=== PATIENT | male | born 1960 | race American Indian/Alaskan Native ===

== ENCOUNTER 2016-11-05 15:28 | Inpatient (IN) | payer MEDICAID ==
[~2016-11-05] VITALS: Ht 162.6 cm; Wt 114.9 kg
--- NOTE | ~2016-11-05 | ECHO ---
Transthoracic Echocardiography Report (TTE) Demographics Patient Name SYLVIA MONTILLA Date of Study 11/17/2016 Patient Number [id number] Visit Number [id number] Date of 1960 Room Number G6216 Accession Number [id number] Gender Male Age 56 year(s) Referring Jesse Tovar MD Concrete Batching Plant Operator Kareen Ponce RVT Physician Sharri Allan Physician Interpreting Surendra Turner Splitter Machine Operator Physician Thais OBRIEN Supervising Ordering Physician Sharri Hook MD/JUAN CARLOS OBRIEN Nurse Stress Crew Foreman Conclusions Summary Technically difficult exam. Limited echo to evaluate right heart function. The estimated left ventricular ejection fraction is 55%. Moderate to severely dilated right ventricle. The right atrium is severely dilated. IVC measures 2.72 cm without inspiratory collapse. Moderate-severe tricuspid regurgitation by color Doppler. There is severe pulmonary hypertension. The pulmonary pressure (RVSP) is 67 mmHg. Large Pleural effusion present. Procedure Type of Study TTE procedure:Echo Limited w/o Contrast. Procedure Date Date: 11/17/2016 Start: 11:47 AM Study Location: Inpatient Portable Technical Quality: Fair due to body habitus. Indications:Congestive heart failure. Additional Indications:Assess right heart Patient Status: STAT HR: 123 bpm BP: 97/64 mmHg M-Mode/2D Measurements RV Base: 3.81 cm RV Mid: 4.68 cm RV Length: 9.51 cm TAPSE: 1.59 cm TDI-S': 12.5 cm/s Doppler Measurements TR Velocity:3.61 m/s TR Gradient:52.13 mmHg Estimated RAP:15 mmHg Estimated PASP: 67.13 mmHg Estimated RVSP: 67 mmHg Findings Right Ventricle Moderate to severely dilated right ventricle. Right Atrium The right atrium is severely dilated. IVC measures 2.72 cm without inspiratory collapse. Tricuspid Valve Moderate-severe tricuspid regurgitation by color Doppler. There is severe pulmonary hypertension. The pulmonary pressure (RVSP) is 67 mmHg. Pleural Effusion Large Pleural effusion present. Signature dtt: THAIS ESPINOZA dtd: 11/17/16 1147 Physician Self Edit
--- NOTE | ~2016-11-05 | ECHO ---
Transthoracic Echocardiography Report (TTE) Demographics Patient Name SYLVIA MONTILLA Date of Study 11/05/2016 Patient Number [id number] Visit Number [id number] Date of 1960 Room Number G6216 Gender Male Number Age 56 year(s) Referring Jesse Tovar Fish Smoker Ketty RVT, RDCS Physician MD Clarke Physician Interpreting Scott Tovar Machinist First Class Physician MD Supervising Ordering MD/MLP Physician Nurse Stress Foreman/Project Manager Conclusions Summary Technically difficult exam due to patients body habitus. The estimated left ventricular ejection fraction is 50%. Mild to moderate concentric left ventricular hypertrophy. The interventricular septum is flattened which is consistent with right ventricular pressure / and or volume overload. Severely dilated right ventricle. Moderate to severely reduced right ventricular function. Moderate tricuspid regurgitation by color Doppler. There is probably severe pulmonary hypertension as the PA diastolic pressure is 36mmHg. Large pleural effusion present. Possibly bicuspid aortic valve. Procedure Type of Study TTE procedure:2D Echocardiogram, M-Mode, Doppler , Color Doppler. Procedure Date Date: 11/05/2016 Start: 04:54 PM Study Location: Inpatient Portable Technical Quality: Fair Indications:Respiratory failure. Appropriate Use Criteria: 9 Patient Status: STAT HR: 123 bpm BP: 96/66 mmHg M-Mode/2D Measurements LV Diastolic Dimension: 3.57 cm LV Systolic Dimension: 1.52 cm LV Septum Diastolic: 1.17 cm LV PW Diastolic: 0.94 cm AO Root Dimension: 3.1 cm AV Cusp Separation: 1.5 cm RV Diastolic Dimension: 4.05 cm LA Dimension: 3.7 cm LVOT: 1.9 cm Doppler Measurements MV Peak E-Wave: 0.86 m/s TR Velocity:2.49 m/s TR Gradient:24.8 mmHg Estimated RAP:15 mmHg PV Peak Velocity: 1.05 m/s Estimated RVSP: 40 mmHg PV Peak Gradient: 4.41 mmHg Estimated PASP: 39.8 mmHg Findings Left Ventricle Mild to moderate concentric left ventricular hypertrophy. The interventricular septum is flattened which is consistent with right ventricular pressure / and or volume overload. Paradoxical septal motion. Right Ventricle Severely dilated right ventricle. Moderate to severely reduced right ventricular function. Left Atrium The left atrium is moderately dilated. Right Atrium Right atrium not well visualized. Mitral Valve Normal mitral valve structure and function. Aortic Valve Possibly bicuspid aortic valve. Tricuspid Valve Moderate tricuspid regurgitation by color Doppler. There is probably severe pulmonary hypertension as the PA diastolic pressure is 36mmHg. Pulmonic Valve Mild pulmonic valve regurgitation by color Doppler. Pericardial Effusion No evidence of pericardial effusion. Pleural Effusion Large pleural effusion present. Signature dtt: Lexie Chavez dtd: 11/05/16 1654 Physician Self Edit
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
--- NOTE | ~2016-11-05 | CON ---
PATIENT'S NAME: NITO CORCORAN [facility] AGE: 56 Y [address] ROOM: [place] [address] LOCATION: [facility] ADMIT DATE: 11/05/2016 Consultation DISCHARGE DATE: FAMILY PHYSICIAN: Maksim Molina MD ATTENDING PHYSICIAN: Sanjana BENZ DATE OF CONSULTATION: 11/14/2016 REFERRING PHYSICIAN: Charles Buckley MD REASON FOR CONSULTATION: Hypotension and tachycardia. HISTORY OF PRESENTING ILLNESS: A 56-year-old gentleman with history of end-stage liver disease secondary to alcohol. He also has portopulmonary hypertension with severe pulmonary artery systolic pressure in the 90s. He also has history of COPD and chronic hypoxic respiratory failure. He was on 4 L of oxygen at home. He also has history of chronic kidney disease and GI bleeding. He received 2 units of packed RBCs while he was in acute hypoxic respiratory failure requiring intubation at [place] and finally the patient was transferred here for further care. The patient has had significant comorbidities and issues since admission and he is doing very poorly and is almost terminal at this stage. The patient also had four large esophageal varices that required banding. He has been hypotensive and tachycardic. He had a Garland Yoon catheter placed, and his PA systolic pressures were in the 80 over 40s. He also had echo that showed significant RV volume and pressure overload. He was on the Bumex drip and they diuresed almost 10 L of urine output and initially when they started that few days ago, and most recently now he is essentially anuric today and Nephrology is on board and he is getting albumin boluses for that. He has had recurrent episodes of SVT. There are episodes of atrial flutter with rapid ventricular response. He is on milrinone and Levophed drip to help maintain systolic blood pressure. They are weaning off the Milrinone currently. He is intubated on 70% oxygen assist control. REVIEW OF SYSTEMS: Not obtained as the patient is intubated on mechanical ventilation. PAST MEDICAL HISTORY: 1. End-stage liver disease secondary to alcohol abuse. 2. Alcoholic cirrhosis. 3. Diabetes mellitus. PATIENT'S NAME: NITO CORCORAN [facility] AGE: 56 Y [address] ROOM: [place] [address] LOCATION: [facility] ADMIT DATE: 11/05/2016 Consultation DISCHARGE DATE: FAMILY PHYSICIAN: Maksim Molina MD ATTENDING PHYSICIAN: Sanjana BENZ 4. History of diastolic CHF. 5. Severe pulmonary hypertension. 6. COPD with chronic hypoxic respiratory failure on 4 L of oxygen at home. 7. Chronic kidney disease. 8. History of alcohol abuse. FAMILY HISTORY: Unable to obtain. SOCIAL HISTORY: Unable to obtain. MEDICATIONS: Please see MAR. ALLERGIES: PLEASE SEE MAR. PHYSICAL EXAMINATION: VITAL SIGNS: Blood pressure is 104/60, pulse is in the 120s, respiratory rate in the 20s,O2 saturation 90% on FiO2 of 70% assist control. GENERAL: Middle-aged man intubated. HEAD: The ET tube in place. EYES: No xanthelasmas. NECK: No thyromegaly. Supple. HEART: S1, S2. Tachycardic. 3/6 systolic murmur best heard in the left lower sternal border. CHEST: Good air exchange anteriorly. No wheezing. SKIN: Warm and dry. Mild lower extremity edema. LABORATORY DATA: pH 7.45, pO2 is 51, pCO2 42, on 40% FiO2 this a.m. for which O2 was increased. Sodium 134, potassium 3.5, CO2 31, anion gap 15.5, BUN 60, creatinine 2.6, albumin 3.5, direct bilirubin 1.1, alkaline phosphatase 46, AST 47, ALT 13, GFR 26, ProBNP 46,243. WBC 19.4, H and H 7.6 and 25.7, platelets are 188. Chest x-ray, cardiomegaly with vascular congestion. Patchy right and left perihilar opacities. Echocardiogram LVEF 50%. RV pressure and volume overload. Severely dilated RV. Right atrium moderate to severely dilated. PA systolic pressure 66 mmHg. Large pleural effusion. Moderate to severely reduced RV systolic function. Tele strips reviewed atrial flutter with 3 to 1 AV block. IMPRESSION AND PLAN: PATIENT'S NAME: SYLVIA MONTILLA [facility] AGE: 56 Y [address] ROOM: [place] [address] LOCATION: [facility] ADMIT DATE: 11/05/2016 Consultation DISCHARGE DATE: FAMILY PHYSICIAN: Maksim Molina MD ATTENDING PHYSICIAN: Sanjana BENZ 1. Supraventricular tachycardia, atrial flutter with 3 to 1 AV block. 2. Hypotension. 3. End-stage liver disease secondary to alcohol abuse. 4. Alcoholic cirrhosis. 5. Portopulmonary hypertension. 6. Chronic obstructive pulmonary disease on oxygen. 7. Severe pulmonary hypertension. 8. Right ventricular failure with reduced right ventricular systolic function, cor pulmonale. 9. Oliguric. 10. Mabuw-ee-ujepoem kidney disease. 11. GI bleed from esophageal varices, status post banding. 12. Encephalopathy. 13. Acacc-az-tjpchbo hypoxic respiratory failure. 14. Diastolic congestive heart failure. PLAN: At this time, unfortunately there is not much Cardiology can add in terms of doing any procedures that will help his overall management. His tachycardia is a reflex mechanism secondary to his numerous acute comorbidities. Aggressive management of his end-stage liver disease as well as respiratory status as you already are. Minimize high pressor use if able to, that will exacerbate the tachycardia as well as tachyarrhythmias. Unfortunately, he is not a candidate for any ablation procedures at this time. I will give him one dose of digoxin; however no amount of AV horacio blocking agents will really help his current situation as this likely is a reflex mechanism for him to cope with his other comorbidities. Given his hypotension, he really is not an ideal candidate for any normal agents for his pulmonary hypertension as well. I do not think an RV Impella or any support in that regard will also help change his overall outcome. His overall prognosis is very poor and the primary team is trying to reach family members regarding further continued care at this point. Thank you very much for allowing us to participate in the care of Mr. Nito Corcoran. JESS ESPINOZA MD AT/modl PATIENT'S NAME: SYLVIA MONTILLA [facility] AGE: 56 Y [address] ROOM: [id number] [place] [id number] LOCATION: GICU ADMIT DATE: 11/05/2016 Consultation DISCHARGE DATE: FAMILY PHYSICIAN: Maksim Molina MD ATTENDING PHYSICIAN: Sanjana BENZ /[id number] d: 11/15/16 0055 t: 11/19/16 1802, CONSULTATION REPORT
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
--- NOTE | ~2016-11-05 | ENPV ---
Vascular Lower Extremities DVT Study Procedure Demographics Patient Name SYLVIA MONTILLA Date of Study 11/15/2016 Patient Number [id number] Gender Male Date of 1960 Age 56 Visit Number [id number] Height 72 Accession Number [id number] Weight 254 Referring Jesse Cline MD Physician Physician Physician Ordering Physician Joseph Roque MD Client Relation Specialist Coutierier Khanh Oconnor [facility], [facility] Conclusions Summary TECHNIQUE: The veins of the lower extremities on the right and the left were evaluated from the groin to the ankle using keys scale, compression, and augmentation. Venous hemodynamics were evaluated with color flow and spectral Doppler. FINDINGS: The deep veins of the legs bilaterally show normal color flow and compressibility without thrombosis. The calf veins are difficult to visualize. IMPRESSION: NO EVIDENCE OF DVT - DIFFICULT TO VISUALIZE CALF VEINS. Procedure Type of Study: Veins:Lower Extremities DVT Study, Venous Duplex Lower Extremity Bilateral. Indications for Study:Swelling of Limb. Appropriate Use Criteria:9 Patient Status:Routine. Study Location:Inpatient Portable. Technical Quality:Adequate visualization. Velocities are measured in cm/s ; Diameters are measured in cm Right Lower Extremities DVT Study Measurements Right 2D and Doppler Measurements + + + + +------+------+ + !Location !Visualized!Compressibility!Thrombosis!Signal!Reflux!Reflux ! ! ! ! ! ! ! !(sec) ! + + + + +------+------+ + !GSV Thigh !Yes !Yes !None !Phasic! ! ! + + + + +------+------+ + !Common !Yes !Yes !None !Phasic! ! ! !Femoral ! ! ! ! ! ! ! + + + + +------+------+ + !Prox !Yes !Yes !None !Phasic! ! ! !Femoral ! ! ! ! ! ! ! + + + + +------+------+ + !Mid Femoral!Yes !Yes !None ! ! ! ! + + + + +------+------+ + !Dist !Yes !Yes !None !Phasic! ! ! !Femoral ! ! ! ! ! ! ! + + + + +------+------+ + !Popliteal !Yes !Yes !None !Phasic! ! ! + + + + +------+------+ + !Gastroc !Yes !Yes !None ! ! ! ! + + + + +------+------+ + !PTV !Yes !Yes !None ! ! ! ! + + + + +------+------+ + !Peroneal !Yes !Yes !None ! ! ! ! + + + + +------+------+ + Left Lower Extremities DVT Study Measurements Left 2D and Doppler Measurements + + + + +------+------+ + !Location !Visualized!Compressibility!Thrombosis!Signal!Reflux!Reflux ! ! ! ! ! ! ! !(sec) ! + + + + +------+------+ + !GSV Thigh !Yes !Yes !None !Phasic! ! ! + + + + +------+------+ + !Common !Yes !Yes !None !Phasic! ! ! !Femoral ! ! ! ! ! ! ! + + + + +------+------+ + !Prox !Yes !Yes !None !Phasic! ! ! !Femoral ! ! ! ! ! ! ! + + + + +------+------+ + !Mid Femoral!Yes !Yes !None ! ! ! ! + + + + +------+------+ + !Dist !Yes !Yes !None !Phasic! ! ! !Femoral ! ! ! ! ! ! ! + + + + +------+------+ + !Popliteal !Yes !Yes !None !Phasic! ! ! + + + + +------+------+ + !Gastroc !Yes !Yes !None ! ! ! ! + + + + +------+------+ + !PTV !Yes !Yes !None ! ! ! ! + + + + +------+------+ + !Peroneal !Yes !Yes !None ! ! ! ! + + + + +------+------+ + Signature dtt: Fabricio Rodriguez dtd: 11/15/16 0736 Physician Self Gabby
--- NOTE | ~2016-11-05 | OR ---
PATIENT'S NAME: SYLVIA MONTILLA [facility] AGE: 56 Y [address] ROOM: [address] [address] LOCATION: GICU ADMIT DATE: 11/05/2016 OR/Procedure Report DISCHARGE DATE: FAMILY PHYSICIAN: Maksim Molina MD ATTENDING PHYSICIAN: Sanjana BENZ SURGEON: Anderson Cash DO AUXILIARY EQUIPMENT OPERATOR: DATE OF PROCEDURE: 11/21/2016 REFERRING PHYSICIAN: Mya Vargas MD PREOPERATIVE DIAGNOSIS: Placement of temporary hemodialysis catheter. BRIEF HISTORY: Mr. Nito Avilez is a 56-year-old gentleman who is in need of hemodialysis. DESCRIPTION OF PROCEDURE: We visualized the right internal jugular vein without difficulty and accessed this also without difficulty; however, a guidewire would not feed past 11 cm. The patient has had multiple previous catheters in this place and continues to have a PICC line in this site, and it may be interfering with the guidewire. Therefore, we proceeded through the left infraclavicular space and accessed the left subclavian vein without difficulty. The guidewire fed without resistance. Soft tissue dilator x2 placed over the guidewire, and then the triple-lumen catheter placed over the guidewire. The guidewire was withdrawn. Each lumen aspirated easily for dark venous blood and was flushed with sterile saline. Two dialysis lumens were then locked with heparin, was secured in position with 2-0 nylon. A sterile dressing was applied, and the patient tolerated the procedure well. A chest x- ray is pending. ANDERSON CASH DO MCB/modl /[id number] d: 11/21/161819 t: 11/23/16 0803, OPERATIVE SUMMARY
--- NOTE | ~2016-11-05 | OR ---
PATIENT'S NAME: SYLVIA MONTILLA [facility] AGE: 56 Y [address] ROOM: [place] [address] LOCATION: CU ADMIT DATE: 11/05/2016 OR/Procedure Report DISCHARGE DATE: FAMILY PHYSICIAN: Maksim Molina MD ATTENDING PHYSICIAN: Sanjana BENZ SURGEON: Taco Iraheta MD DATE OF PROCEDURE: 11/22/2016 PROCEDURE PERFORMED: Rapid sequence endotracheal intubation. INDICATIONS: Worsening acute hypercapnic and hypoxic respiratory failure with altered mental status and massive fluid overload in a patient with cardiogenic shock. DESCRIPTION OF PROCEDURE: Permit was implied secondary to emergency situation. A GlideScope with a #4 blade was inserted into the oropharynx at which time the vocal cords were adequately visualized. Prior to this, 100 mcg of fentanyl, 5 mg of Versed, and 20 mg of etomidate were administered for sedation and analgesia. A #8 endotracheal tube was inserted and visualized going through the vocal cords on the second attempt. During the first attempt, it was hard to advance the endotracheal tube past the subglottic space. With the second attempt, I kept the stylet in and advanced it past the subglottic space. The stylet was removed. The end-tidal CO2 meter showed CO2 levels in the mid 30s. Breath sounds were heard in both lung matthew equally. The endotracheal tube was placed at 23 cm measured at the teeth. COMPLICATIONS: None. ESTIMATED BLOOD LOSS: None. TACO IRAHETA MD RFN/modl /[id number] d: 11/22/16 1422 t: 11/23/16 1024, OPERATIVE SUMMARY
--- NOTE | ~2016-11-05 | CON ---
PATIENT'S NAME: TERESA CORCORAN SYLVIA [facility] AGE: 56 Y [address] ROOM: [facility] [place] [address] LOCATION: GICU ADMIT DATE: 11/05/2016 Consultation DISCHARGE DATE: FAMILY PHYSICIAN: Maksim Molina MD ATTENDING PHYSICIAN: Sanjana BENZ DATE OF CONSULTATION: 11/05/2016 REFERRING PHYSICIAN: Charles Buckley MD REASON FOR CONSULTATION: GI bleed. HISTORY OF PRESENT ILLNESS: This is a 56-year-old gentleman with past medical history of alcoholic liver cirrhosis, diabetes mellitus type 2, diastolic heart failure, pulmonary hypertension, COPD, chronic hypoxic respiratory failure on 4 L home oxygen, chronic kidney disease, and alcohol alcoholism. The patient presented to the [facility] with suspected GI bleed and acute hypoxic respiratory failure. On admission, at that time, his hemoglobin was 7.3. Two units of blood were transfused with a repeat hemoglobin of 7.6. The following day, the patient had complications with worsening of altered mental status and was placed on BiPAP. He ultimately ended up intubated and had significant hypotension. The patient was then transferred to [facility]. The patient was seen and examined. He is intubated and unable to give us any details from review of the medical record as well as the report from the outside facility. The patient was found to have melena stool with a drop of hemoglobin. One report stated that the nurse did notice bright red blood per rectum. The patient currently intubated and sedated. He is currently on IV fluids for blood pressure support as well as vasopressors for his hypotension as the OG was placed coffee-grounds emesis was noted with initial output of 250 mL. We do make contact with the patient's sister , who is his power of employee benefits attorney as she does report a history of alcohol abuse with paracentesis noted. She does report a history of an upper endoscopy and colonoscopy, but does not recall the details as well as timing of these procedures. PAST MEDICAL HISTORY: 1. Diabetes mellitus type 2. 2. Diastolic heart failure. 3. Pulmonary hypertension. 4. COPD, on 3-4 L at home. 5. Coronary artery disease. 6. Chronic kidney disease. 7. Alcoholism. 8. Cor pulmonale. PATIENT'S NAME: TERESA CORCORAN [facility] AGE: 56 Y [address] ROOM: [place] [address] LOCATION: [facility] ADMIT DATE: 11/05/2016 Consultation DISCHARGE DATE: FAMILY PHYSICIAN: Maksim Molina MD ATTENDING PHYSICIAN: Sanjana BENZ PAST SURGICAL HISTORY: Unable to obtain, secondary to the patient's status. The patient's sister does report that he did have an upper endoscopy and colonoscopy, though unsure of timing and outcome. SOCIAL HISTORY: The patient is a known alcoholic and currently resides at a shelter. FAMILY HISTORY: Unable to acquire due to the patient's mentation. ALLERGIES: PER THE MEDICAL REPORT. THE PATIENT IS ALLERGIC TO PENICILLIN, MORPHINE, AND CODEINE. CURRENT MEDICATIONS: Please refer to the medication administration record. REVIEW OF SYSTEMS: A 10-point review of systems was completed. All were negative except for those identified in the history of present illness. PHYSICAL EXAMINATION: GENERAL: The patient is a 56-year-old male, lying in bed, currently intubated and sedated. VITAL SIGNS: Temperature 98.3, pulse of 132, respirations of 18, blood pressure 125/63, oxygen saturations 91%. SKIN: [place], warm, and dry. No jaundice. HEENT: Head is normocephalic and atraumatic. Pupils are equal, round, and reactive to light. Sclerae is mildly icteric. Oral mucosa is pink and moist. No thyromegaly. NECK: Soft and supple. CARDIOVASCULAR: Tachycardic. Normal S1 and S2, RESPIRATORY: Respirations are even and unlabored. LUNGS: Clear to auscultation. Slightly diminished in the bilateral lobes. ABDOMEN: Round, obese, and soft. Bowel sounds are positive x4 quadrants. MUSCULOSKELETAL: No muscle weakness or atrophy. EXTREMITIES: No clubbing or cyanosis or edema. NEUROLOGIC: The patient currently is intubated and sedated. LABORATORY DATA AND IMAGING STUDIES: Hemoglobin of 7.9, hematocrit of 27.4, and platelet of 144. Glucose of 113, BUN of 93, creatinine 2.2. AST of 18, ALT of 15, total bilirubin 1.7. INR is 1.6. PATIENT'S NAME: SYLVIA MONTILLA [facility] AGE: 56 Y [address] ROOM: [address] [place] [id number] LOCATION: GICU ADMIT DATE: 11/05/2016 Consultation DISCHARGE DATE: FAMILY PHYSICIAN: Maksim Molina MD ATTENDING PHYSICIAN: Sanjana BENZ ASSESSMENT AND PLAN: Again, this is a 56-year-old male, who was transferred from [place] with past medical history significant for liver cirrhosis, diastolic heart failure, cor pulmonale, chronic obstructive pulmonary disease, chronic kidney disease, and current alcoholism. The patient was admitted at [facility] for acute GI bleed. 1. Coffee-grounds emesis. The patient's OG tube does appear to have significant coffee-grounds emesis output. This was lavaged per Dr. Adrianna Holland, which did clear mildly. The patient is recommended to continue the Protonix drip. We will also place the patient on octreotide as well as ceftriaxone for prophylaxis of spontaneous bacterial peritonitis. The patient will need an upper endoscopy after stabilization as well as after octreotide has been running to assist in possible variceal bleed. 2. Chronic hypoxic respiratory failure. The patient currently is vented and sedated. MARTINA is pending at this time. This will be managed per our hospitalist and conveyor man. 3. Questionable hepatic encephalopathy. The patient will be continued on the ventilator. We will place the patient on Flagyl for hepatic encephalopathy as well as a continue treating underlying etiology. Further recommendations to be given status post upper endoscopy. Thank you for this consult and allowing us to participate in the care of this patient. We will continue to monitor, evaluate, and treat as appropriate. JEREMÍAS DAVENPORT APRN FOR ADRIANNA HOLLAND MD MMF/modl /[id number] d: 11/06/16 1126 t: 12/28/16 1034, CONSULTATION REPORT
--- NOTE | ~2016-11-05 | CON ---
PATIENT'S NAME: SYLVIA MONTILLA [facility] AGE: 56 Y [address] ROOM: [address] [place], [place] [address] LOCATION: GICU ADMIT DATE: 11/05/2016 Consultation DISCHARGE DATE: FAMILY PHYSICIAN: Maksim Molina MD ATTENDING PHYSICIAN: Sanjana BENZ DATE OF CONSULTATION: 11/07/2016 REFERRING PHYSICIAN: Charles Buckley MD REASON FOR CONSULTATION: BRENT versus BRENT on CKD. HISTORY OF PRESENT ILLNESS: A 56-year-old gentleman with history of alcoholic cirrhosis; diabetes mellitus, type 2; diastolic heart failure; pulmonary hypertension; COPD with chronic hypoxic respiratory failure, was on 4 L of oxygen at home; CKD without any known baseline, admitted at [facility] with GI bleed. Following which, the patient received 2 units of PRBC transfusion resulting in acute hypoxic respiratory failure necessitating intubation. The patient has been transferred to our hospital for further management and care. As per the transfer note suggests, the patient was found to have melanotic stool with drop of hemoglobin and after 2 units of transfusion, hemoglobin was 7.3. However, his stay was complicated with worsening of altered mental status and worsening shortness of breath, possibly secondary to decompensated heart failure. The patient was intubated and after was transferred to [facility]. After coming here, the patient had an EGD done which showed 4 big esophageal varices, necessitating banding. Since then, the patient's hemoglobin is stable, although the patient has received a total of 6 units of PRBC transfusion since coming here. The patient has a severe pulmonary hypertension. On [place] Yoon, the pulmonary artery pressure is 80/40s. Noted to have significant vascular condition and an echo shows significant right ventricular volume and pressure overload. Started on aggressive diuretic regimen from yesterday with Bumex drip resulting in almost 10 L of urine output in the last 24 hours. The patient's creatinine was 2.1 on admission, which improved to 1.7 today. Nephrology consultation has been called for possible BRENT versus BRENT on CKD. REVIEW OF SYSTEMS: Could not be obtained as the patient is intubated and on mechanical ventilation. PAST MEDICAL HISTORY: 1. 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 2. Diabetes mellitus. 3. Diastolic heart failure. 4. Pulmonary hypertension. 5. COPD with chronic hypoxic respiratory failure on 4 L at home. 6. Chronic kidney disease with unknown baseline. 7. Alcoholism. PAST SURGICAL HISTORY: Unable to obtain at this point as the patient is intubated. FAMILY HISTORY: Unable to obtain due to the patient's clinical condition. SOCIAL HISTORY: Unable to obtain due to the patient's condition. MEDICATIONS: Please see MAR.PATIENT'S NAME: SYLVIA MONTILLA [facility] AGE: 56 Y [address] ROOM: [place] [address] LOCATION: [facility] ADMIT DATE: 11/05/2016 Consultation DISCHARGE DATE: FAMILY PHYSICIAN: Maksim Molina MD ATTENDING PHYSICIAN: Sanjana BENZ PHYSICAL EXAMINATION: VITAL SIGNS: Blood pressure 90 to 110 over 60 to 70, pulse 60-70, respiratory rate 20s, saturation 91-94% on FiO2 40%, and PEEP of 5, and the patient had a temperature of 100.1 degrees Fahrenheit. GENERAL: Middle aged male, currently intubated and sedated. HEAD: ET tube in place. Bilateral PERRLA. NECK: Positive JVD. No thyromegaly or lymphadenopathy. CVS: S1, S2 positive. irregular rate and rhythm. Pansystolic murmur at the left sternal border. CHEST: Bilateral air entry is coarse. Occasional rales, mostly at the bases. No wheeze. ABDOMEN: Soft, nondistended. Bowel sounds sluggish. EXTREMITIES: No cyanosis, clubbing, or jaundice. 1+ dependent edema. MUSCULOSKELETAL: No limitation of range of motion. SKIN: No pallor, cyanosis, or icterus. [employer] PRINCIPAL: Intubated and sedated, however moving bilateral extremities. LABORATORY TESTS: ABG; pH 7.57, pCO2 45, pO2 67, and bicarbonate 41. CBC: Hemoglobin 9.1, hematocrit 29.4, WBC 10.6, and platelet 120. Chemistry: Sodium 148; potassium 2.1, dropped from 4.2, yesterday; chloride 102; bicarbonate 36; BUN 77; creatinine 1.7, dropped from 2.2; and glucose 134. Calcium 8.4, total protein 7.1, albumin 2.5, AST 38, ALT 13, alkaline phosphatase 65, total bilirubin 2.2, and direct bilirubin 1.1. Magnesium 1.5. UA pending. Urine electrolytes pending. Procalcitonin today 0.54. ASSESSMENT AND PLAN: 1. Nonoliguric acute kidney injury on chronic kidney disease: Had a history of chronic kidney disease, but baseline is unknown. Creatinine on admission was 2.1, which improved to 1.7 on aggressive diuresis indicating that there is significant component of cardiorenal syndrome type 1. We would recommend to continue aggressive diuresis, however, the patient has been more than 10 L on 1 mg/hour Bumex drip. We can discontinue the Bumex drip and switch to intermittent bolus regimen including Bumex 2 mg IV q.6 hourly along with metolazone 10 mg p.o. daily. Strict intake and output monitoring and daily body weights recording. Avoid hemodynamic stress. Maintain MAP more than 65. Avoid nephrotoxins including NSAIDs and contrast media. Please send a UA and urine electrolytes including sodium, potassium, creatinine, osmolality, and send for urine microscopy. 2. Gastrointestinal bleed, possibly from esophageal varices, status post banding. Currently, the hemoglobin is stable. GI is following. Further recommendation as per GI. 3. Portosystemic encephalopathy. Mental status apparently poor, was on lactulose because there was no NG tube or OG tube in place because of the banding. GI want to place a narrow-gauge Dobbhoff catheter through the nose for lactulose administration on, which may improve his mentation. 4. Acute on chronic hypoxic respiratory failure, possibly due to decompensated heart failure with multiple blood transfusions and fluid resuscitation. The patient currently on aggressive diuretic regimen. Continue diuretics as mentioned above. We will closely monitor the patient's progress.PATIENT'S NAME: SYLVIA MONTILLA [facility] AGE: 56 Y [address] ROOM: [address] [address] LOCATION: [facility] ADMIT DATE: 11/05/2016 Consultation DISCHARGE DATE: FAMILY PHYSICIAN: Maksim Molina MD ATTENDING PHYSICIAN: Sanjana BENZ 5. Diastolic heart failure. Echocardiogram shows significant volume and pressure overload on the right side of the heart with dilated IVC and significant pulmonary hypertension. Continue aggressive diuretic regimen. Dragoon Yoon is in place, we will monitor the pulmonary pressure and may repeat echocardiogram in next few days to look for the change in the right-sided hemodynamics. 6. Chronic obstructive pulmonary disease. Currently, on mechanical ventilation. Albuterol p.r.n. as per the primary team. Dr. Buckley is on the case. Thank you for allowing me to participate in this patient's care. We will closely monitor the patient's progress along with you. ABHISEKH LUIS ARMANDO NELSON MD /bishop /[id number] d: 11/07/16 1920 t: 11/11/16 1231, CONSULTATION REPORT
--- NOTE | ~2016-11-05 | HP ---
PATIENT'S NAME: SYLVIA MONTILLA [facility] AGE: 56 Y [address] ROOM: [id number] [place] [address] LOCATION: GICU ADMIT DATE: 11/05/2016 History & Physical DISCHARGE DATE: FAMILY PHYSICIAN: Maksim Molina MD ATTENDING PHYSICIAN: Sanjana BENZ DATE OF SERVICE: CHIEF COMPLAINT: GI bleed. HPI: The patient is a 56-year-old gentleman with past medical history of alcoholic liver cirrhosis; diabetes mellitus type 2; diastolic heart failure; pulmonary hypertension; COPD; chronic hypoxic respiratory failure, on 4 L home oxygen; chronic kidney disease; and alcoholism, who presents here from [facility] with GI bleed and acute hypoxic respiratory failure. The patient was noted to have altered mental status and increasing oxygen saturation at the fdc and was transferred to [facility] for further evaluation. During his stay, he was noted to have hypoxic respiratory failure and was treated for heart failure with diuretics. During his stay, the patient was found to have melanotic stool with a drop in hemoglobin. The patient was initially transfused with 2 units of blood and repeat hemoglobin shows hemoglobin of 7.6. Initially, his hemoglobin was found to be 7.3 before they give the 2 units. His repeat hemoglobin was 7.6, and the patient was transfused again with 2 units of pack red blood cells. However, his stay was complicated with worsening of altered mental status and worsening of shortness of breath. The patient was placed on BiPAP with 100% FiO2. The patient's symptoms did not improve and altered mental status decreased and also blood pressure was noted to decrease. The patient was intubated and sent to our hospital for further investigation. En route, the patient was given some benjamin boluses for hypotension. However, his blood pressure did not improve and was given some 500 mL of IV fluid with improvement of blood pressure. On arrival to our ICU, the patient was found to have coffee-grounds emesis through his OG tube. The patient is intubated and sedated. We contacted the patient's POA, who is his sister, and according to his sister, the patient has a history of alcoholic abuse and reports that he has liver cirrhosis. She reports that in the past, they have tapped his belly to get fluid out. She also reports of past GI bleed with EGD and colonoscopy, but does not remember the outcome. PAST MEDICAL HISTORY: Diabetes mellitus, type 2; diastolic heart failure; pulmonary hypertension; COPD, on 3-4 L at home; coronary artery disease; chronic kidney disease; PATIENT'S NAME: TERESA CORCORAN [facility] AGE: 56 Y [address] ROOM: [place] [address] LOCATION: [facility] ADMIT DATE: 11/05/2016 History & Physical DISCHARGE DATE: FAMILY PHYSICIAN: Maksim Molina MD ATTENDING PHYSICIAN: Sanjana BENZ alcoholism; and cor pulmonale. PAST SURGICAL HISTORY: Unable to obtain. There is no record. FAMILY HISTORY: Unable to acquire due to the patient's mentation. SOCIAL HISTORY: The patient drinks alcohol and stays in a fdc. MEDICATIONS: Please see MAR. REVIEW OF SYSTEMS: Unable to obtain due to the patient's mentation. PHYSICAL EXAMINATION: VITAL SIGNS: Heart rate of 123, blood pressure of 108/70, saturating 100% on FiO2 of 100. GENERAL APPEARANCE: The patient is morbidly obese. He is sedated and intubated. HEAD: Normocephalic, atraumatic. EYES: Mildly icteric sclerae. MOUTH: NG tube placed with coffee-grounds emesis coming from OG tube. NECK: No JVD noted and supple. LUNGS: The patient is intubated. Mechanical breath sound heard throughout with decreased breath sound on the left lower lung field. HEART: Tachycardic. No murmurs, rubs, or gallops heard. ABDOMEN: Soft and nontender with chronic edematous change with possible fluid shift. Bowel sounds present. : Cardona cath present. SKIN: Venous stasis found in lower extremities. EXTREMITIES: Venous stasis. No edema noted. MUSCULOSKELETAL: No obvious effusion. AOC DIRECTOR COMBAT PLANS OFFICER: The patient is sedated and intubated. DATA: Lab: ABG: pH of 7.36, pCO2 of 67, pO2 of 138, and bicarb of 37.9 while on FiO2 [place] 100. [place] 8866. CBC: Hemoglobin of 7.9, hematocrit of 27.4, and a platelet of 144. PATIENT'S NAME: TERESA CORCORAN [facility] AGE: 56 Y [address] ROOM: [place] [address] LOCATION: [facility] ADMIT DATE: 11/05/2016 History & Physical DISCHARGE DATE: FAMILY PHYSICIAN: Maksim Molina MD ATTENDING PHYSICIAN: Sanjana BENZ Chem: Glucose of 113, BUN of 96, and creatinine of 2.2. AST of 18, ALT of 15, total bilirubin of 1.7. INR of 1.6. ASSESSMENT AND PLAN: The patient is a 56-year-old gentleman with past medical history of liver cirrhosis; diastolic heart failure; cor pulmonale; chronic obstructive pulmonary disease, on 3 L home oxygen; chronic kidney disease; and alcoholism who presents here from [facility] with acute on chronic hypoxic respiratory failure, gastrointestinal bleed, and altered mental status. 1. Acute blood loss anemia. Etiology most likely secondary to upper gastrointestinal bleed. OG tube shows coffee-ground emesis. Etiology most likely secondary to esophageal varices or gastric varices. The patient currently on octreotide drip, Protonix drip, and ceftriaxone for prophylaxis for spontaneous bacterial peritonitis. 2. We will check hemoglobin serially q.4 hours. Type and screen. If hemoglobin is below 7, we will transfuse packed red blood cells. 3. GI on board for possible EGD tomorrow a.m. 4. Acute on chronic hypoxic respiratory failure. Etiology most likely secondary to ongoing blood loss anemia and heart failure. Even though the patient appears fluid overloaded due to his cor pulmonale and low blood pressure due to acute blood loss, we will continue IV fluid. The patient was noted to be responsive with IV fluid. We will keep the patient on mechanical ventilation while we adequately hydrate him. I suspect the patient is intravascularly depleted due to acute blood loss. We will keep IV fluids. We will acquire [place]-Yoon to further evaluate his physiology. Stat echo pending. ICU mental measurements teacher on board. 5. Acute metabolic encephalopathy. Etiology most likely secondary to hepatic encephalopathy and metabolic derangement due to hypoxic respiratory failure and blood loss. We will treat underlying etiology. We will keep patient on mechanical ventilation. We will hold his fentanyl patch. Fentanyl patch was removed. We will start Flagyl IV for hepatic encephalopathy, recommendation per GI, and we will continue to treat underlying etiology such as acidosis, electrolyte derangement, and anemia. 6. Hepatic encephalopathy. See above. 7. Diastolic heart failure. Holding diuretics as the patient might be intravascularly depleted. We will acquire [place]-Yoon and further evaluate fluid dynamics. Holding diuretics. 8. Chronic obstructive pulmonary disease. Currently, the patient on mechanical ventilation. We will put albuterol p.r.n. 9. Chronic kidney disease, stage 3. Creatinine currently stable. We will continue with IV fluid and get daily labs. PATIENT'S NAME: SYLVIA MONTILLA [facility] AGE: 56 Y [address] ROOM: [place] [address] LOCATION: [facility] ADMIT DATE: 11/05/2016 History & Physical DISCHARGE DATE: FAMILY PHYSICIAN: Maksim Molina MD ATTENDING PHYSICIAN: Sanjana BENZ 10. Diabetes mellitus, type 2. We will hold his oral medication. Actually, I do not see any oral medication on his medication list. We will have the patient on SSI. 11. Hypothyroidism. Continue Synthroid. We will start IV Synthroid. 12. The patient's care plan and assessment were discussed with family, STEVE, who is the sister. Also discussed with GI and mental measurements teacher. Greater than 30 minutes of critical care was spent during this care. DEMAR HEARN MD AD/modl /[id number] D: 308 T: 805 HISTORY & PHYSICAL
--- NOTE | ~2016-11-05 | ECHO ---
Transthoracic Echocardiography Report (TTE) Demographics Patient Name SYLVIA MONTILLA Date of Study 11/12/2016 Patient Number [id number] Visit Number [id number] Date of 1960 Room Number G6216 Gender Male Number Age 56 year(s) Referring Govind Tovar Hat Liner Terrie Seymour RDCS, Physician RVT Physician Interpreting [place] Blank Maintenance Department Technician Physician Supervising Ordering Govind Tovar MD, MD/MLP Physician Nurse Stress Fish Net Stringer Conclusions Summary Technically difficult study with suboptimal endocardial border visualization Limited study The estimated left ventricular ejection fraction is 50%. The interventricular septum is flattened which is consistent with right ventricular pressure / and or volume overload. Severely dilated right ventricle. The right atrium is moderate to severely dilated. There is severe pulmonary hypertension. The estimated pulmonary pressure (RVSP) is 66 mmHg.. On bubble study, no obvious interatrial shunt was seen. Large pleural effusion present. Procedure Type of Study TTE procedure:Echo Limited w/o Contrast. Procedure Date Date: 11/12/2016 Start: 09:53 AM Study Location: Inpatient Portable Technical Quality: Adequate visualization Additional Indications:asses right heart Appropriate Use Criteria: 9 Patient Status: Routine Rhythm: Within normal limits Doppler Measurements TR Velocity:3.57 m/s TR Gradient:50.98 mmHg PV Peak Velocity: 1.15 m/s Estimated RAP:15 mmHg PV Peak Gradient: 5.29 mmHg Estimated RVSP: 66 mmHg Estimated PASP: 65.98 mmHg Findings Right Ventricle The interventricular septum is flattened which is consistent with right ventricular pressure / and or volume overload. Severely dilated right ventricle. Moderate to severely reduced right ventricular function. Right Atrium The right atrium is moderate to severely dilated. Tricuspid Valve Mild tricuspid regurgitation by color Doppler. There is severe pulmonary hypertension. The pulmonary pressure (RVSP) is 66 mmHg.. Miscellaneous bubbles at the end of the test, no bubble appear in the left atrium. Pleural Effusion Large pleural effusion present. Signature dtt: MISTI DANGELO dtd: 11/12/16 0953 Physician Self Edit
--- NOTE | ~2016-11-05 | DS ---
PATIENT'S NAME: SYLVIA MONTILLA [facility] AGE: 56 Y [address] ROOM: [place] [address] LOCATION: GICU ADMIT DATE: 11/05/2016 Discharge Summary DISCHARGE DATE: 11/25/2016 FAMILY PHYSICIAN: Maksim Molina MD ATTENDING PHYSICIAN: Sanjana HAYNES PRIMARY DIAGNOSES: 1. Shock. 2. Upper gastrointestinal bleed. 3. Acute blood loss anemia. 4. Esophageal variceal bleeding. 5. Cor pulmonale, severe. 6. Xnmui-eb-jpxqtut hypoxic respiratory failure. 7. End-stage liver cirrhosis with massive ascites. 8. Supraventricular tachycardia. 9. Severe pulmonary hypertension. 10. Hepatic encephalopathy. 11. End-stage renal disease. 12. Systemic inflammatory response syndrome. 13. Anasarca. 14. Thrombocytopenia. PRINCIPAL PROCEDURES DONE FOR THE PATIENT: Includes EGD with clipping of bleeding esophageal varices by Dr. Mejia, abdominal paracentesis by Radiology, hemodialysis catheter placement by Dr. Garay, Rutland-Yoon placement by Dr. Buckley, and transfusion with fresh frozen plasma. LABORATORY DATA: The patient had multiple ABGs done as he was intubated from the day of admission to November 18 before he was extubated and reintubated on November 22. First ABG which was done on admission was pH 7.36, pCO2 67, pO2 138, bicarb 37.9, CO2 40, FiO2 of 100%. Lactic acid on admission was 0.8 and repeat was 2.3. Pro-BNP on admission was 8866, highest level obtained was 95,358, and prior to expiration was 71,391 pro-BNP. On admission, WBC was 8.6, highest level obtained was 19.4, prior to expiration was 9.1, H and H on admission was 7.9/27.4, prior to expiration was 6.8/22.3, platelet on admission was 144, prior to expiration was 37. Sodium on admission was 143, highest level obtained was 152, prior to discharge was 137; potassium on admission 4.2, suffers from hypokalemia, lowest level 2.2, prior to expiration was 3.4; bicarb on admission was 35, highest level obtained was 44, prior to expiration was 26; and magnesium was stable throughout the hospital stay with occasional repletion. INR on admission was 1.61 and highest level obtained was 2.24. UA on admission leukocytes 100, nitrite negative, wbc 0-2, bacteria negative. CRP 16.9, LDH 107. TSH 5.430. Peritoneal fluid analysis yellow, wbc 4, 66 neutrophil, differential 81%. PATIENT'S NAME: SYLVIA MONTILLA [facility] AGE: 56 Y [address] ROOM: [place] [address] LOCATION: [facility] ADMIT DATE: 11/05/2016 Discharge Summary DISCHARGE DATE: 11/25/2016 FAMILY PHYSICIAN: Maksim Molina MD ATTENDING PHYSICIAN: Sanjana HAYNES MICROBIOLOGY: Blood cultures no growth after 5 days. Multiple blood cultures, no growth. Bronchial washout no organisms. Respiratory culture no growth at 3 days from bronchial washout. Pleural fluid culture, no growth. Stool negative for C. diff. HIV screening was negative. RADIOLOGY: Chest x-ray on admission is reported as endotracheal tube and orogastric tube in place. Cardiac enlargement with vascular congestion. Bilateral perihilar, infrahilar, and bibasilar opacity, which could reflect edema, atelectasis, or infiltrate. Dense opacity in the lower left hemithorax consistent with pleural fluid and lung consolidation. The patient had multiple chest x-rays as he was on a ventilator. Abdominal ultrasound is reported as cirrhosis and moderate ascites. Kidney ultrasound, normal kidneys, empty bladder, and cirrhotic liver with ascites. He had multiple chest x-rays done. CT of the chest cirrhosis with massive ascites and splenomegaly, left hemidiaphragm elevation appears to be secondary to the ascites, localized interstitial and alveolar opacity in the right upper lobe could well-reflect pneumonia and this is superimposed on biapical emphysematous changes and abdominal paracentesis done with 5000 mL of ascites. Echocardiogram which was done on admission was ejection fraction 50%. Mild-to- moderate concentric LVH, severely dilated right ventricle, moderate-to- severely reduced right ventricular function, moderate tricuspid regurgitation by color Doppler. There is post severe PA pressure as the PA diastolic pressure is 36. Large pleural effusion present. HOSPITAL COURSE: For history of present illness, please take a look at the H and P, which was done by Dr. Haynes. The patient was admitted to ICU for rkwnh-lg-wslcray hypoxic respiratory failure and also acute encephalopathy. The acute encephalopathy was due to his hepatic failure and so the patient had lactulose given for this with slight improvement. His uzbtj-vl-idizfnu hypoxic respiratory failure was attributed to one to his severe pulmonary hypertension complicated by cor pulmonale; so, the patient had a Rutland-Yoon catheter placed from the first day of the hospital admission up until November 10 when it was discontinued. He did also present with shock. There were numerous differentials for the shock, which include one hemorrhagic shock, possibly also secondary to cardiogenic shock as well as septic shock. He did get a GI consult who subsequently did an EGD and found a bleeding esophageal varices and were clipped and at least [address]. Given his septic shock, source was really unknown; however, given the immunosuppressed state of the patient with end-stage liver disease, spontaneous bacterial peritonitis was suspected, and the patient was started on Rocephin from the first day of the hospital stay. He had Rocephin up until November 13 when it was discontinued and thereafter he was started on meropenem, Levaquin, and Zyvox given chest x-ray finding, which appeared to be hospital-acquired pneumonia. The patient remained on the ventilator from the first day of the hospital stay up until November 18 after the patient was extubated. However, PATIENT'S NAME: SYLVIA MONTILLA [facility] AGE: 56 Y [address] ROOM: [place] [address] LOCATION: [facility] ADMIT DATE: 11/05/2016 Discharge Summary DISCHARGE DATE: 11/25/2016 FAMILY PHYSICIAN: Maksim Molina MD ATTENDING PHYSICIAN: Sanjana HAYNES he continued to remain on pressors throughout the whole of his hospital stay requiring a maximum of 3 pressors and only able to wean him down only to one pressor juggling between one and two pressors throughout his whole hospital stay. Given his anasarca which he presented with as well as his acute kidney injury on chronic kidney disease, Renal were also involved. The patient was aggressively diuresed from the first day of hospital stay of up until about November 13. He was intermittently diuresed with IV pushes of Bumex and metolazone. There was adequate response to the diuresis with adequate urine output. From November 13 onwards, his diuresis was discontinued and he was just intermittently diuresed and also was given some albumin. During the diuretic phase, he also developed imbalanced electrolyte and so had to be repleted multiple times. Along the line, his Levaquin was discontinued after about 24 hours and his Zyvox was discontinued after about 7 days total and he had meropenem for a total of 10 days after which it was discontinued. Supportive treatment was continued for the patient for his end-stage liver cirrhosis, intermittently requiring albumin, with also occasional diuresis and also he was also on a vent for awhile with high FiO2 given his severe pulmonary hypertension with cor pulmonale. Ultimately, by November 17, the patient did get an abdominal paracentesis done with removal of 5 L of ascitic fluid. Ultimately, the patient was successfully extubated on November 18 to high-flow of nasal cannula to high-flow oxygen requiring FiO2 of about 70% to 80%. However, by November 22, due to the fact that the patient still continued to require high-flow of oxygen with worsening in his mental status and respiratory fatigue, he was ultimately reintubated. From the first day of his hospital stay, the patient was followed up by the Palliative Care team who worked closely with the family and gave adequate support to the family; however, after the reintubation, we had serious talk with the family about the futility of the patient's clinical condition and the very poor prognosis, which had been discussed with them right from the first day of the hospital stay, but however at this point in time, the Medical team did discuss with the family the worsening prognosis and that his chances of actually getting out of the ICU in his current multiorgan failure was almost impossible. Cardiology as well also were consulted for his supraventricular tachycardia, which he developed, and the patient was started on sotalol and combination with some digoxin for rate control. By November 25, family ultimately decided to make the patient comfort care and to go ahead and do a compassionate extubation and this was done at approximately 1430 hours and by 1610 hours the patient with family at bedside. Time spent on this discharge summary is approximately 45 minutes. BRISEIDA OCHOA MD PATIENT'S NAME: SYLVIA MONTILLA [facility] AGE: 56 Y [address] ROOM: [place] [address] LOCATION: GICU ADMIT DATE: 11/05/2016 Discharge Summary DISCHARGE DATE: 11/25/2016 FAMILY PHYSICIAN: Maksim Molina MD ATTENDING PHYSICIAN: Sanjana HAYNES /[id number] d: 11/26/16 0010 t: 11/28/16 1657, DISCHARGE SUMMARY
[2016-11-05] MEDS ORDERED: ASPIRIN LO-DOSE81 MG PO (16:00)
[2016-11-05] MEDS ORDERED: COLACE100 MG PO (16:00)
[2016-11-05] MEDS ORDERED: FENTANYL1 EAC1 TRANS (16:04)
[2016-11-05] MEDS ORDERED: LEVOTHROID (S150 MCG PO (16:04)
[2016-11-05] MEDS ORDERED: LEXAPRO10 MG PO (16:05)
[2016-11-05] MEDS ORDERED: MELATONIN3 MG PO (16:06)
[2016-11-05] MEDS ORDERED: THERAGRAN-M1 TAB PO (16:07)
[2016-11-05] MEDS ORDERED: SPIRIVA HANDIHA1 KIT INH (16:08)
[2016-11-05] MEDS ORDERED: ALDACTONE25 MG PO (16:08)
[2016-11-05] MEDS ORDERED: XANAX0.5 MG PO ×2 (16:09→16:32)
[2016-11-05] MEDS ORDERED: ZAROXOLYN2.5 MG PO (16:10)
[2016-11-05] MEDS ORDERED: TYLENOL325 MG PO ×2 (16:11→16:31)
[2016-11-05] MEDS ORDERED: ACIDOPHILUS LA1 EACH PO (16:12)
[2016-11-05 16:13] LABS: BICARBONATE 37.9 mmol/L (18.0-23.0); PCO2 67 mmHg (35-45); PO2 138 mmHg (80-90)
[2016-11-05] MEDS ORDERED: LASIX80 MG PO (16:13)
[2016-11-05] MEDS ORDERED: K-TAB ER20 MEQ PO (16:14)
[2016-11-05] MEDS ORDERED: SYMBICORT 16010.2 GM INH (16:15)
[2016-11-05] MEDS ORDERED: OCEAN NASAL) (A44 ML NOSE (16:16)
[2016-11-05] MEDS ORDERED: REFRESH TEARS15 ML OPHTH ×2 (16:17→16:28)
[2016-11-05] MEDS ORDERED: ALBUTEROL1.25 MG/3 INH (16:18)
[2016-11-05] MEDS ORDERED: DULCOLAX10 MG R (16:19)
[2016-11-05] MEDS ORDERED: FLEET ENEMA133 ML R (16:20)
[2016-11-05] MEDS ORDERED: GLUCOSE GEL38 GM PO (16:22)
[2016-11-05] MEDS ORDERED: MYLANTA (MAG-AL30 ML PO (16:23)
[2016-11-05] MEDS ORDERED: MILK OF MA400 MG/5 M PO (16:23)
[2016-11-05] MEDS ORDERED: PREPARATION H O57 GM R (16:27)
[2016-11-05] MEDS ORDERED: ROBITUSSIN DM120 ML PO (16:30)
[2016-11-05 16:42] LABS: BASOPHIL # 0.1 K/uL (0.0-0.2); BASOPHIL % 0.7 %; EOSINOPHIL # 0.2 K/uL (0.0-0.5); EOSINOPHIL % 1.7 %; HEMATOCRIT 27.4 % (37.0-53.0); IMMATURE GRANULOCYTE # 0.1 K/uL (0.0-0.3); LYMPHOCYTE # 0.5 K/uL (0.8-4.0); MCH 23.6 pg (27.0-34.0); MCHC 28.8 gm/dL (32.0-36.5); MCV 81.8 fl (83.0-98.0); MONOCYTE # 0.9 K/uL (0.0-1.0); MONOCYTE % 10.6 %; MPV 8.7 fl (9.4-12.4); NEUTROPHIL # (ANC) 6.9 K/uL (1.4-9.0); NRBC % 2.3 /100WBC (0-0.00); PLATELET COUNT 144 K/uL (150-450); RBC 3.35 M/uL (4.00-6.00); RDW-CV 17.9 % (11.9-14.6); WBC 8.6 K/uL (4.0-11.0)
[2016-11-05 16:43] LABS: HEMOGLOBIN 7.9 g/dL (12.0-17.0)
[2016-11-05 16:50] LABS: INR - (THERAPEUTIC) 1.61 (0.92-1.07)
[2016-11-05 17:05] LABS: ALBUMIN 2.4 gm/dL (3.5-5.0); CALCIUM 8.1 mg/dL (8.5-10.5); CREATININE 2.2 mg/dL (0.6-1.3); POTASSIUM 4.2 mMol/L (3.7-5.1); TOTAL BILIRUBIN 1.7 mg/dL (0.0-1.5); TOTAL PROTEIN 6.4 g/dL (6.0-8.4)
[2016-11-05 17:06] LABS: ANION GAP 13.2 (10.0-19.0)
[2016-11-05 20:03] LABS: HEMATOCRIT 24.3 % (37.0-53.0)
[2016-11-05 20:04] LABS: HEMOGLOBIN 7.2 g/dL (12.0-17.0)
[2016-11-06 00:07] LABS: HEMATOCRIT 26.9 % (37.0-53.0)
--- NOTE | 2016-11-06 03:51 | NUR ---
Patient was weaned from an FIO2 of 80% down to an FIO2 of 70%. On 70%, saturations have been 92-94%. Breath sounds are diminished on the Left, clear and diminished in the right upper lobe, and diminished in the right lower lobes. Suctioning scant to small cream thick secretions. Will continue to monitor.
[2016-11-06 04:29] LABS: BICARBONATE 38.4 mmol/L (18.0-23.0)
[2016-11-06 04:30] LABS: PCO2 47 mmHg (35-45)
[2016-11-06 04:31] LABS: PO2 72 mmHg (80-90)
[2016-11-06 05:17] LABS: HEMATOCRIT 27.5 % (37.0-53.0); HEMOGLOBIN 8.4 g/dL (12.0-17.0)
--- NOTE | 2016-11-06 05:27 | NUR ---
SIGNIFICANT EVENT: PT SEDATED ON FENT 50MCG/HR AND PRECEDEX 0.2MCG/KG/MIN. DOES GET RESTLESS AT TIMES, DOES NOT FOLLOW COMMANDS, MOVES ALL EXTREMITIES. LEVO GTT OFF AND SWITCHED TO JUAN JOSÉ PER DR. BROWNING DUE TO NEW ONSET A-FLUTTER FOLLOWING INITIATION OF LEVO GTT. JUAN JOSÉ CURRENTLY RUNNING AT 0.6MCG/KG/MIN. 1 UNIT PRBCs GIVEN FOR HGB 7.2. DR. MIGUEL NOTIFIED OF PULMONARY PRESSURES IN THE 80s AT BEGINNING OF SHIFT. DR. BROWNING NOTIFIED OF FREQUENT BEATS OF VTACH PRIOR TO LEVOPHED TURNING OFF. FOLLOW UP:
[2016-11-06 08:03] LABS: HEMATOCRIT 28.7 % (37.0-53.0); HEMOGLOBIN 8.7 g/dL (12.0-17.0)
[2016-11-06 11:30] LABS: HEMATOCRIT 28.7 % (37.0-53.0); HEMOGLOBIN 8.8 g/dL (12.0-17.0)
--- NOTE | 2016-11-06 16:59 | NUR ---
Pt continued in A/C mode, 60% Fio2, attempted to wean with no results. Lung sounds diminished L>R. Occ sxn small cream but mostly scant. Will continue to wean as tolerated
[2016-11-06 17:57] LABS: HEMATOCRIT 29.6 % (37.0-53.0)
[2016-11-07 03:58] LABS: BICARBONATE 41.2 mmol/L (18.0-23.0); PCO2 45 mmHg (35-45); PO2 67 mmHg (80-90)
[2016-11-07 04:18] LABS: ALBUMIN 2.5 gm/dL (3.5-5.0); CALCIUM 8.4 mg/dL (8.5-10.5); CREATININE 1.7 mg/dL (0.6-1.3); PHOSPHORUS 2.9 mg/dL (2.5-4.9)
[2016-11-07 04:20] LABS: HEMATOCRIT 29.4 % (37.0-53.0); HEMOGLOBIN 9.1 g/dL (12.0-17.0); MCH 24.6 pg (27.0-34.0); MCV 79.5 fl (83.0-98.0); MPV 9.6 fl (9.4-12.4); PLATELET COUNT 120 K/uL (150-450); RDW-CV 19.4 % (11.9-14.6); WBC 10.6 K/uL (4.0-11.0)
[2016-11-07 04:28] LABS: ANION GAP 12.1 (10.0-19.0); POTASSIUM 2.1 mMol/L (3.7-5.1)
[2016-11-07 04:29] LABS: ALBUMIN 2.5 gm/dL (3.5-5.0); TOTAL BILIRUBIN 2.2 mg/dL (0.0-1.5); TOTAL PROTEIN 7.1 g/dL (6.0-8.4)
[2016-11-07 05:05] LABS: ABSOLUTE NEUTROPHIL CT (ANC) 9.9 K/uL (1.4-9.0); BANDED NEUTROPHIL # 0.7 K/uL (0.0-0.1); BANDED NEUTROPHILS % 7 %; LYMPHOCYTE # 0.3 K/uL (0.8-4.0); LYMPHOCYTE % 3 %; MONOCYTE # 0.2 K/uL (0.0-1.0); SEGMENTED NEUTROPHIL # 9.1 K/uL (1.4-9.0); SEGMENTED NEUTROPHIL % 86 %
--- NOTE | 2016-11-07 05:16 | NUR ---
Patient's FIO2 was weaned down to 55% with saturations in the low to mid 90's. End tidal has ran 31-33. Breath sounds are sometimes slightly coarse in the upper lobes that clears with suctioning and diminished in the bases, always more diminished on the left than the right. Suctioning scant amounts of thick, cream colored sputum. Will continue to monitor.
[2016-11-07 13:12] LABS: BILIRUBIN URINE NEGATIVE (NEGATIVE); BLOOD URINE 150 /UL (NEGATIVE); COLOR URINE YELLOW (YELLOW); GLUCOSE URINE NEGATIVE (NEGATIVE); KETONE URINE NEGATIVE (NEGATIVE); LEUKOCYTES URINE 100 /UL (NEGATIVE); NITRITE URINE NEGATIVE (NEGATIVE); PROTEIN URINE NEGATIVE (NEGATIVE); TURBIDITY URINE CLEAR (CLEAR); UROBILINOGEN URINE NORMAL (NORMAL)
[2016-11-07 13:18] LABS: BACTERIA URINE NEGATIVE (NEGATIVE); EPITHELIAL URINE RARE #/HPF (NEGATIVE); WBC URINE 0-2 #/HPF (NEGATIVE)
--- NOTE | 2016-11-07 14:30 | NUR ---
Pt continued on vent support t/o shift, no significant changes to settings made. Fio2 at 50%, attempted to wean to 45% but did not maintain sat>90%. Lung sounds clear uppers, clear/diminished bases bilat. Sxn scant-small thick cream. Pt has strong spont cough. Will continue to monitor and wean as tolerated
--- NOTE | 2016-11-07 18:41 | NUR ---
Significant Event: Patient is on precedex at 0.4mcg/kg/hr, and fentanyl gtt at 50mcg/hr. Patient easily withdraws to lower extremities, but upper takes more of heavy nail bed pressure. Shakes head no/yes appropriately at times. Did open eyes to command, overbreathes set rate, and has a cough and a gag reflex. A-flutter today, with many PVC's. KCL replaced with 100meq, still low at 2.2, replaced with another 100meq of KCL. Bumex gtt d/cd and just is getting IV bumex. SBP maintained with Fabien-synephrine gtt at 0.8mcg/kg/min. Dobhoff placed today per physician, enulose given this shift. Polyuria. MD's all aware of amount of urine from landry catheter. High temp of 100.3 Follow up:
--- NOTE | 2016-11-07 18:41 | NUR ---
I have reviewed and agree with the charting of SN Dann.
--- NOTE | 2016-11-08 03:46 | NUR ---
Patient's vent settings remain unchanged. His FIO2 has been weaned to 45% with sats >90%. Patient has strong spontaneous cough. Suctioning scant amounts of thick cream. Breath sounds clear and diminished in upper lobes, diminished in bases, slightly more diminished on the L. Will continue to monitor.
[2016-11-08 04:13] LABS: BICARBONATE 46.1 mmol/L (18.0-23.0); PCO2 47 mmHg (35-45); PO2 54 mmHg (80-90)
--- NOTE | 2016-11-08 05:45 | NUR ---
Significant Event: Patient sedated on precedex at 0.4mcg/kg/hr. Opens eyes spontaneously and to voice occasionally. Moves extremeties with turns, does not follow commands. Nods appropriately occasionally. A-flutter with frequent PVCs, kcl replaced this shift. BP stable with benjamin titrated down to current rate of 0.4mcg/kg/min. -10,446 fluid balance for past 24hrs. AC on vent, overbreathes. Lung sounds clear and diminished throughout. Bowel sounds hypoactive. Dobhoff intact, no bm this shift. Cardona intact, polyuric. No new or worsening skin issues. Afebrile. Abdomen firm. Follow up: Continue, wean benjamin/vent.
[2016-11-08 06:47] LABS: ALBUMIN 3.3 gm/dL (3.5-5.0); CALCIUM 9.1 mg/dL (8.5-10.5); CREATININE 1.6 mg/dL (0.6-1.3)
[2016-11-08 06:50] LABS: ANION GAP 8.8 (10.0-19.0); PHOSPHORUS 1.8 mg/dL (2.5-4.9); POTASSIUM 2.8 mMol/L (3.7-5.1)
[2016-11-08 06:53] LABS: HEMATOCRIT 29.1 % (37.0-53.0); HEMOGLOBIN 8.7 g/dL (12.0-17.0); MCH 24.4 pg (27.0-34.0); MCHC 29.9 gm/dL (32.0-36.5); MCV 81.7 fl (83.0-98.0); MPV 9.4 fl (9.4-12.4); PLATELET COUNT 100 K/uL (150-450); RBC 3.56 M/uL (4.00-6.00); RDW-CV 19.6 % (11.9-14.6)
[2016-11-08 07:22] LABS: ABSOLUTE NEUTROPHIL CT (ANC) 7.9 K/uL (1.4-9.0); BANDED NEUTROPHIL # 0.3 K/uL (0.0-0.1); BANDED NEUTROPHILS % 3 %; LYMPHOCYTE # 0.3 K/uL (0.8-4.0); LYMPHOCYTE % 3 %; MONOCYTE # 0.3 K/uL (0.0-1.0); SEGMENTED NEUTROPHIL # 7.7 K/uL (1.4-9.0); SEGMENTED NEUTROPHIL % 85 %
[2016-11-08 11:13] LABS: INR - (THERAPEUTIC) 1.47 (0.92-1.07); PROTIME 15.5 SECONDS (9.8-11.4)
--- NOTE | 2016-11-08 11:38 | NUR ---
REC OSMOLITE 1.5 @ 60 ML/HR.
--- NOTE | 2016-11-08 14:36 | NUR ---
Received message to call and called Cadence social service liaison at [facility] [phone]. Gave her an update of pt condition. Pt has lived there since [id number], they will accept him back when ready for discharge. Will follow.
--- NOTE | 2016-11-08 16:51 | NUR ---
D: RESPIRATORY FAILURE I: V2OO, ALBUTEROL MDI R: BREATH SOUNDS SLIGHTLY COARSE TO DIMINISHED AND CLEAR, SXN- SMALL/MODERATE THICK BLOODY/BLD TINGED, ET TUBE SECURE, CUFF AT MINIMAL OCCLUSIVE PRESSURE, ETCO2 33-36 P: CONTINUE CURRENT THERAPY
--- NOTE | 2016-11-08 17:37 | NUR ---
Significant Event:Patient intubated, Assist Control, PEEP 8, VT 400, FiO2 50%, Fabien-synephrine drip at 0.4mcg/kg/min to keep MAP's >65, Abd firm and distended, BS hypo x4, incontinent of 2 small black tarry loose stools, began 200cc q4hr H2O boluses via -esther, minimal coffee ground residuals. Bumex given x2, 2mg/1mg, net -1.6L Follow up: Titrate Fabien to keep MAP's >65, possibly wean vent
--- NOTE | 2016-11-09 02:39 | NUR ---
Tried to wean FiO2 to 40%, but had to increase to 45% to maintain SpO2 >90% early in the shift. BrSs clear with suctioning of moderate amounts of cream/blood-tinged secretions from ETT. LLL diminished. EtCO2 mid 40s this shift. Continue per plan of care, wean FiO2 as tolerated.
[2016-11-09 03:56] LABS: BICARBONATE 51.1 mmol/L (18.0-23.0); PO2 57 mmHg (80-90)
[2016-11-09 03:59] LABS: PCO2 64 mmHg (35-45)
[2016-11-09 04:50] LABS: CALCIUM 8.8 mg/dL (8.5-10.5); CREATININE 1.6 mg/dL (0.6-1.3); TOTAL BILIRUBIN 1.9 mg/dL (0.0-1.5); TOTAL PROTEIN 7.2 g/dL (6.0-8.4)
[2016-11-09 04:51] LABS: ANION GAP 6.5 (10.0-19.0); POTASSIUM 2.5 mMol/L (3.7-5.1)
[2016-11-09 04:59] LABS: BASOPHIL # 0.1 K/uL (0.0-0.2); BASOPHIL % 0.5 %; EOSINOPHIL # 0.8 K/uL (0.0-0.5); EOSINOPHIL % 9.1 %; HEMOGLOBIN 8.8 g/dL (12.0-17.0); IMMATURE GRANULOCYTE % 0.2 %; LYMPHOCYTE # 0.5 K/uL (0.8-4.0); LYMPHOCYTE % 5.7 %; MCH 23.7 pg (27.0-34.0); MCHC 28.4 gm/dL (32.0-36.5); MCV 83.3 fl (83.0-98.0); MONOCYTE # 1.2 K/uL (0.0-1.0); MONOCYTE % 13.2 %; MPV 9.4 fl (9.4-12.4); NEUTROPHIL # (ANC) 6.5 K/uL (1.4-9.0); NEUTROPHIL % 71.3 %; NRBC % 0 /100WBC (0-0.00); PLATELET COUNT 96 K/uL (150-450); RBC 3.72 M/uL (4.00-6.00); RDW-CV 19.8 % (11.9-14.6); WBC 9.2 K/uL (4.0-11.0)
--- NOTE | 2016-11-09 06:54 | NUR ---
Significant Event: No significant changes from previous night. Tolerating h2o flushes well, bloody residual. No bm this shift. Continues to be polyuric. Afebrile. Follow up: Replace kcl per this AM. Wean benjamin/vent.
[2016-11-09 18:48] LABS: ALBUMIN 3.3 gm/dL (3.5-5.0); CALCIUM 8.6 mg/dL (8.5-10.5); CREATININE 1.6 mg/dL (0.6-1.3); MAGNESIUM 1.4 mg/dL (1.3-2.6); PHOSPHORUS 3.3 mg/dL (2.5-4.9); POTASSIUM 3.3 mMol/L (3.7-5.1)
[2016-11-09 18:50] LABS: ANION GAP 7.3 (10.0-19.0)
[2016-11-10 04:08] LABS: BICARBONATE 45.9 mmol/L (18.0-23.0); PCO2 63 mmHg (35-45); PO2 67 mmHg (80-90)
[2016-11-10 05:00] LABS: ALBUMIN 3.3 gm/dL (3.5-5.0); CALCIUM 8.4 mg/dL (8.5-10.5); CREATININE 1.6 mg/dL (0.6-1.3); PHOSPHORUS 2.6 mg/dL (2.5-4.9); POTASSIUM 3.3 mMol/L (3.7-5.1)
[2016-11-10 05:01] LABS: ANION GAP 6.3 (10.0-19.0)
--- NOTE | 2016-11-10 05:02 | NUR ---
D: RESP. FAILURE I: VENT, MDI R: PT. STARTED SHIFT ON 45% FIO2 AND WAS INCREASED TO 70% TO KEEP SATS GREATER THEN 88%. ETCO2 38-44. BrSs ARE CLEAR AND DIMINISHED T/O MORE SO IN THE BASES. SUCTIONED A SMALL AMOUNT OF THICK CREAMY SECRETIONS. P: CONTINUE TO WEAN O2 TOLERATED.
[2016-11-10 05:12] LABS: BASOPHIL # 0.1 K/uL (0.0-0.2); BASOPHIL % 0.5 %; EOSINOPHIL # 0.9 K/uL (0.0-0.5); EOSINOPHIL % 9.2 %; HEMATOCRIT 30.4 % (37.0-53.0); HEMOGLOBIN 8.7 g/dL (12.0-17.0); IMMATURE GRANULOCYTE % 0.4 %; LYMPHOCYTE # 0.9 K/uL (0.8-4.0); LYMPHOCYTE % 9.1 %; MCH 24.3 pg (27.0-34.0); MCHC 28.6 gm/dL (32.0-36.5); MCV 84.9 fl (83.0-98.0); MONOCYTE # 1.4 K/uL (0.0-1.0); MONOCYTE % 13.7 %; MPV 10.4 fl (9.4-12.4); NEUTROPHIL # (ANC) 6.6 K/uL (1.4-9.0); NEUTROPHIL % 67.1 %; NRBC % 0 /100WBC (0-0.00); PLATELET COUNT 104 K/uL (150-450); RBC 3.58 M/uL (4.00-6.00); RDW-CV 19.9 % (11.9-14.6); WBC 9.8 K/uL (4.0-11.0)
--- NOTE | 2016-11-10 05:35 | NUR ---
Significant Event: Patient sedated and ventilated. A/C controled, FiO2 of 60%. Over breathes vent at times. Precedex, Fabien, albumin, flagyl, potassium, and D5 running into right Jugular CL with no complications. Continues to have high readings in swans. High CVP. De-SATS with repositioning. ABD distended. Bloody residuals of 10-30mls. Lung sounds clear and diminished. More diminished on left side. Small open area in crease of buttocks. Repositioned Q2hrs. Smear of BM this shift. NPO with Q4hr 250ml H2O flushes via dobhoff in right nare. Will open eyes with repositioning and will respond to his name at times. Follow up: continue with plan of care.
--- NOTE | 2016-11-10 13:00 | NUR ---
A - NUT F/U. VENT. SEDATED W/ PRECEDEX. TARRY STOOLS. HYPOACTIVE BOWEL SOUNDS. ABD DISTENDED. PRBCS GIVEN. SMALL O/A CREASE OF BUTTOCKS. 1+ EDEMA. FLUID OVERLOAD. LABS: ACCUCHECK WNL-REAS, K+ 3.3, GLU 146, BUN/CR 48/1.6, ALB 3.3, TOT BILI 1.9, HGB/HCT 8.7/30.4 MEDS: BUMEX, FOLIC ACID/THIAMINE, ALDACTONE, PROTONIX, LACTULOSE, FLAGYL, SSI, ROCEPHIN. DIET: NPO. DOBHOFF - 300 ML WATER Q4 HRS. NEEDS: 7814-0480 KCAL, 92-115 G PRO D - INADEQUATE NUTRIENT INTAKE R/T DIFFICULTY SWALLOWING, ALTERED GI FUNCTION AEB VENT SUPPORT, NPO STATUS, GI BLEED ON ADMIT. I - GOAL FOR NUTRITION INITIATION W/IN 48 HRS. REC OSMOLITE 1.5 @ 60 ML/HR TO PROVIDE 2160 KCAL, 90 G PRO, 1097 ML FREE WATER. IF UNABLE TO START DIET MAY NEED TO CONSIDER PARENTERAL NUTRITION TO MEET NEEDS. M/E - WILL MONITOR POC, DIET, GI FUNCTION F/U IN 2-3 DAYS.
--- NOTE | 2016-11-10 15:56 | NUR ---
SIGNIFICANT EVENT: PATIENT SEDATED WITH PRECEDEX AT 0.3 MCG/KG/HR AND DENT. GTT AT 50 MCG/HR. WITH SEDATION, PATIENT NOW OPENS EYES SPONT AND TO VOICE. PUPILS EQUAL AND REACTIVE. PATIENT OCCASIONALLY NODS YES/NO APPROPRIATELY. PATIENT TRACKS RN IN ROOM WITH EYES. PATIENT DOES NOT FOLLOW COMMANDS. PATIENT WITHDRAWS TO PAIN IN ALL 4 EXTREMITIES. PATIENT OBSERVED MOVING ALL 4 EXTREMITIES SPONTANEOUSLY. PATIENT HAS BEEN IN A FLUTTER RHYTHM, OCCASIONALL HAS SINUS BEATS. PATIENT'S HR 60-90S. PULSES PALPABLE THROUGHOUT. EDEMA PRESENT. AFEBRILE. JUAN JOSÉ GTT AT 0.5 MCG/KG/MIN TO KEEP MAP>65. PATIENT CONTINUES TO REQUIRE VENT SUPPORT, A/C MODE, FIO2 100%, PEEP INCREASED TO 10, TV INCREASED TO 450. ETCO2 30-39. PATIENT OVER BREATHS VENT SETTINGS, KEEP SATS >87%. BOWEL SOUNDS RARE, NO BM TODAY. ABDOMEN DISTENDED AND FIRM, DR SOLOMON, GI (TONO N.P), NEPHROLOGY (RAY), AND DR. MCBRIDE NOTIFIED AND AWARE. ACCU CHECKS Q 4 HOURS. MUKHERJEE INTACT, ADEQUATE URINE OUTPUT. NO NEW SKIN ISUES NOTED. FOLLOW UP: CONTINUE TO MONITOR, WEAN OFF JUAN JOSÉ GTT ONCE MILRINONE INITITATED AND ABLE TO MAINTAIN MAP>65.
[2016-11-10 20:07] LABS: ALBUMIN 3.8 gm/dL (3.5-5.0); ANION GAP 10.1 (10.0-19.0); CALCIUM 8.1 mg/dL (8.5-10.5); CREATININE 1.8 mg/dL (0.6-1.3); PHOSPHORUS 2.6 mg/dL (2.5-4.9); POTASSIUM 4.1 mEq/L (3.7-5.1)
[2016-11-11 04:41] LABS: PCO2 55 mmHg (35-45); PO2 59 mmHg (80-90)
--- NOTE | 2016-11-11 05:00 | NUR ---
FiO2 on ventilator weaned to 60% this shift with Peep still at [id number]. EtCO2 has been 38-44 this shift. BrSs slightly coarse at times, with suctioning of small amounts of cream/blood-tinged secretions from ETT. Pt on precedex, awakens easily, tries to communicate with staff. Pt has forehead sat probe that has been repositioned Q2H this shift. Continue to wean FiO2 as tolerated.
[2016-11-11 05:47] LABS: ALBUMIN 3.9 gm/dL (3.5-5.0); ANION GAP 7.6 (10.0-19.0); CALCIUM 8.2 mg/dL (8.5-10.5); POTASSIUM 4.6 mMol/L (3.7-5.1); TOTAL PROTEIN 7.3 g/dL (6.0-8.4)
[2016-11-11 05:48] LABS: TOTAL BILIRUBIN 3.1 mg/dL (0.0-1.5)
[2016-11-11 05:58] LABS: MAGNESIUM 1.6 mg/dL (1.8-2.6)
--- NOTE | 2016-11-11 05:59 | NUR ---
PATIENT IS SLIGHTLY SEDATED WITH IV PRECEDEX AT 0.3 ME/KG/H EASILY AWAKE WILL FOLLOW SIMPLE COMMANDS MOVES ALL EXTREMITIES CLEAR UPPER LUNGS SOUND DIMINISHED ON THE BASES,THICK CREAMY SECRTIONS WHEN SUCTIONED,A/C VENT MODE FIO2=60%,J2OWE=51%,ABD IS FIRM AND DISTENDED . FOLLOW UP:CONTINUE TO MONITOR PATIENT'S HEMODYNAMIC AND RESPIRATORY STATUS CLOSELY WEAN FIO2 WHEN POSSIBLE.
[2016-11-11 06:04] LABS: BASOPHIL # 0.1 K/uL (0.0-0.2); BASOPHIL % 0.5 %; EOSINOPHIL # 0.7 K/uL (0.0-0.5); EOSINOPHIL % 5.5 %; HEMATOCRIT 27.5 % (37.0-53.0); IMMATURE GRANULOCYTE # 0.1 K/uL (0.0-0.3); IMMATURE GRANULOCYTE % 0.7 %; LYMPHOCYTE # 1.3 K/uL (0.8-4.0); LYMPHOCYTE % 9.7 %; MCV 84.4 fl (83.0-98.0); MONOCYTE # 1.7 K/uL (0.0-1.0); MONOCYTE % 12.7 %; MPV 10.6 fl (9.4-12.4); NEUTROPHIL # (ANC) 9.6 K/uL (1.4-9.0); NEUTROPHIL % 70.9 %; NRBC % 0.3 /100WBC (0-0.00); RBC 3.26 M/uL (4.00-6.00); WBC 13.5 K/uL (4.0-11.0)
[2016-11-11 06:06] LABS: HEMOGLOBIN 7.8 g/dL (12.0-17.0); MCH 23.9 pg (27.0-34.0); MCHC 28.4 gm/dL (32.0-36.5); PLATELET COUNT 147 K/uL (150-450)
--- NOTE | 2016-11-11 11:32 | NUR ---
Reviewed chart and left voicemail for [facility] [phone] with update of pt condition, asking what pt normal level of activity is, ambulatory or w/c bound, and also what his alcohol order is at the [facility]. Will follow.
--- NOTE | 2016-11-11 15:41 | NUR ---
Talked with Cadence at [facility]. Pt able to ambulate with walker in room, and wheels self in wheelchair longer distances but wants to walk so restorative walks with him to the dining room every day with walker, about 120 feet. She reports pt does not drink alcoholic beverages, has been totally dry alcohol becker since admission to [facility] in 2008. Prior to that lived at [facility] and did drink then, and has an extensive alcohol history prior to that. Reports that when they have barbeques for their residents, they will offer whoever wants one a red beer, and pt refuses that too. Told her I would pass this information along, will update her next week.
--- NOTE | 2016-11-11 17:10 | NUR ---
Significant Event: Patient is on Precedex at 0.3mcg/kg/HR. Patient follows commands, moves extremities spontaneously, withdraws X4. Pupils are equal and rective. Fabien is running at 1.5mcg/kg/min. SBP have been mid 80's-one teens, MAP's upper 50's-80's, one teens-120's. Vent is in AC Rate of 16, TV of 500, FiO2 of 55%, PEEP of 10. RR have been 18-23, EtCo2 have been upper 30's-low 40's. O2 sats have been 88-94%. Lung sounds are clear and diminished. Cardona had 1345ml out. Follow up:
--- NOTE | 2016-11-11 17:19 | NUR ---
D: RESP FAILURE I: VENT, MDI R: INCREASED VT TO 500 THIS AFTERNOON, FLUCTUATED BETWEEN 50-60% FIO2, BS C&D IN UPPER LOBES & DIM IN BASES, SXNED OUT SCANT TO SMALL THICK CREAMY SECRETIONS, NO OTHER SIGNIFICANT CHANGES T/O DAY P: CONT.
[2016-11-11 18:08] LABS: ALBUMIN 3.8 gm/dL (3.5-5.0); CALCIUM 8.1 mg/dL (8.5-10.5); CREATININE 2.2 mg/dL (0.6-1.3); PHOSPHORUS 2.5 mg/dL (2.5-4.9)
[2016-11-12 04:39] LABS: ALBUMIN 3.6 gm/dL (3.5-5.0); CALCIUM 8.2 mg/dL (8.5-10.5); CREATININE 2.2 mg/dL (0.6-1.3); POTASSIUM 3.7 mMol/L (3.7-5.1); TOTAL PROTEIN 7.4 g/dL (6.0-8.4)
[2016-11-12 04:40] LABS: ANION GAP 11.7 (10.0-19.0); TOTAL BILIRUBIN 4.1 mg/dL (0.0-1.5)
[2016-11-12 04:40] LABS: PCO2 56 mmHg (35-45); PO2 59 mmHg (80-90)
[2016-11-12 04:44] LABS: BASOPHIL # 0.1 K/uL (0.0-0.2); BASOPHIL % 0.3 %; EOSINOPHIL # 0.4 K/uL (0.0-0.5); EOSINOPHIL % 2.1 %; HEMATOCRIT 28.1 % (37.0-53.0); HEMOGLOBIN 8.2 g/dL (12.0-17.0); IMMATURE GRANULOCYTE # 0.2 K/uL (0.0-0.3); IMMATURE GRANULOCYTE % 1.2 %; LYMPHOCYTE # 1.1 K/uL (0.8-4.0); LYMPHOCYTE % 6.6 %; MCH 24.3 pg (27.0-34.0); MCHC 29.2 gm/dL (32.0-36.5); MCV 83.1 fl (83.0-98.0); MONOCYTE % 11.6 %; MPV 10.2 fl (9.4-12.4); NEUTROPHIL # (ANC) 13.6 K/uL (1.4-9.0); NEUTROPHIL % 78.2 %; NRBC % 0.7 /100WBC (0-0.00); RBC 3.38 M/uL (4.00-6.00); RDW-CV 20.4 % (11.9-14.6)
[2016-11-12 04:46] LABS: PLATELET COUNT 191 K/uL (150-450); WBC 17.4 K/uL (4.0-11.0)
--- NOTE | 2016-11-12 05:13 | NUR ---
Significant Event: Pt is sedated with precidex, but is easily arrousable. Nods appropriatly. Moves all extremities spontaneously and to command. Pupils are equal and reactive. Pt is intubated in A/C. Lungs have sounded slighly coarse and diminished in the bases. Pt is on a JUAN JOSÉ and Primacore gtt. Maps are being kept above 65. Cardona cath in place with good urine output. No BM this shift, PRN lactulous given. R) IJ in place. Follow up: Wecamilo granda and gtts.
--- NOTE | 2016-11-12 05:27 | NUR ---
FiO2 decreased to 50% last night and tolerating fairly well. With turns he desats, but recovers. BrSs slightly coarse, LLL diminished. Suctioned moderate amounts of cream, thick secretions from ETT. Continue per plan of care.
--- NOTE | 2016-11-12 11:02 | NUR ---
A - NUT F/U. VENT. SEDATED ON PRECEDEX. 1+ EDEMA. BOWEL SOUNDS RARE. ABD DISTENDED/FIRM. 11/05 WT 290#, 11/12 WT 257# - DOWN 33# (11%) D/T DIURESING. LABS: ACCUCHECK WNL, GLU 107, BUN/CR 52/2.2, TOT BILI 4.1, WBC 17.4, HGB/HCT 8.2/28.1. MEDS: ALDACTONE, FOLIC ACID, THIAMINE, PROTONIX, D5LR, LACTULOSE, FLAGYL, SSI, ROCEPHIN. DIET: NPO x 7 DAYS. 300 ML WATER Q4 HRS VIA DOBHOFF. NEEDS: 1112-3506 KCAL, 92-115 G PRO D - INADUQUATE NUTRIENT INTAKE R/T DIFFICULTY SWALLOWING, ALTERED GI FUNCTION AEB VENT STATUS, GI BLEED ON ADMIT, NPO x 7 DAYS. I - GOAL FOR NUTRITION INITIATION REC OSMOLITE 1.5 @ 60 ML/HR TO PROVIDE 2160 KCAL, 90 G PRO, 1097 ML FREE WATER. IF UNABLE TO START TF REC TPN @ 100 ML/HR W/ 250 ML 20% LIPIDS MWF TO PROVIDE 3821-8827 KCAL (AVG 2662) AND 102 G PRO. M/E - WILL MONITOR POC F/U IN 3-4 DAYS.
--- NOTE | 2016-11-12 11:07 | NUR ---
NPO x 7 DAYS. REC OSMOLITE 1.5 @ 60 ML/HR. IF UNABLE TO START TF REC TPN @ 100 ML/HR W/ 250 ML 20% LIPIDS MWF.
--- NOTE | 2016-11-12 17:14 | NUR ---
D: RESP FAILURE I: VENT, MDI R: PT WAS ON 40-55% T/O MOST OF DAY, DR SOLOMON ORDERED FOR PT TO BE PLACED ON 100% FIO2 T/O NOC, BS SL COARSE IN UPPER LOBES & DIM IN BASES, SXNED OUT SMALL TO MOD THICK CREAMY SECRETIONS, DECREASED PEEP TO 8, NO OTHER SIGNIFICANT CHANGES T/O DAY P: CONT.
--- NOTE | 2016-11-12 18:01 | NUR ---
Significant Event:Alert, tracks, follows commands, tries to make gestures and mouth words, moves all extremities. Sinus Tachycardia today with HR 120's to 150's. SBP 70's to 130's. Max temp 99.5. Fan in use. JUAN JOSÉ off at 1705, Levo started at 1.0 mcg/kg/min at 1653. 1+ edema all over. Ventilator in AC, FiO2 increased from 45% to 100%. Peep decreased to 8. TV increased to 550.Lungs slighlty coarse. Suctioned white creamy thick sputum, frequent oral cares. Precedex offa t 1232. D5W off at 1030. BM smear early in the AM, Enulose order changed to TID. ABD very large, very firm. 300 ml water flushes q4h, Osmolite 1.0 started at 1514 @ goal of 75 ml/h. Blood sugars did not need treatment. Cardona concentrated urinary output, tea colored 850 ml. Scheduled pain meds, Roxicodone given per dobhoff in R) nare at 66 cm. Follow up: Tritrated pressors to keep MAP > 65.
[2016-11-12 20:53] LABS: ANION GAP 12.4 (10.0-19.0); CALCIUM 8.4 mg/dL (8.5-10.5); CREATININE 2.5 mg/dL (0.6-1.3); PHOSPHORUS 2.6 mg/dL (2.5-4.9); POTASSIUM 3.4 mEq/L (3.7-5.1)
[2016-11-13 05:18] LABS: BICARBONATE 36.9 mmol/L (18.0-23.0); PCO2 61 mmHg (35-45); PO2 58 mmHg (80-90)
--- NOTE | 2016-11-13 05:21 | NUR ---
Patient currently ventilated. FiO2 weaned down to 60%. O2 sats were 95-100%. ETCO2 was 35-41 throughout the shift. Breathsounds clear and diminished in the upper lobes bilaterally and diminished in the bases bilaterally. Suctioning small to moderater amounts of thick creamy secretions. Will continue to monitor patient.
[2016-11-13 05:41] LABS: ALBUMIN 3.8 gm/dL (3.5-5.0); ANION GAP 10.6 (10.0-19.0); CALCIUM 8.4 mg/dL (8.5-10.5); CREATININE 2.6 mg/dL (0.6-1.3); PHOSPHORUS 2.3 mg/dL (2.5-4.9); POTASSIUM 3.6 mMol/L (3.7-5.1)
[2016-11-13 05:42] LABS: BASOPHIL # 0.1 K/uL (0.0-0.2); BASOPHIL % 0.3 %; EOSINOPHIL # 0.3 K/uL (0.0-0.5); EOSINOPHIL % 1.6 %; HEMATOCRIT 25.2 % (37.0-53.0); IMMATURE GRANULOCYTE # 0.3 K/uL (0.0-0.3); IMMATURE GRANULOCYTE % 1.7 %; LYMPHOCYTE % 5.3 %; MCH 24.5 pg (27.0-34.0); MCHC 29.4 gm/dL (32.0-36.5); MCV 83.4 fl (83.0-98.0); MONOCYTE # 1.8 K/uL (0.0-1.0); MONOCYTE % 9.6 %; MPV 10.3 fl (9.4-12.4); NEUTROPHIL % 81.5 %; NRBC % 0.8 /100WBC (0-0.00); PLATELET COUNT 184 K/uL (150-450); RBC 3.02 M/uL (4.00-6.00); RDW-CV 20.9 % (11.9-14.6)
[2016-11-13 05:47] LABS: HEMOGLOBIN 7.4 g/dL (12.0-17.0); WBC 18.4 K/uL (4.0-11.0)
--- NOTE | 2016-11-13 06:59 | NUR ---
Significant Event: Pt is alert and will nod and attempt to mouth words. Pupils are equal and reactive. Moves all extremities sponaneously and to command. Intubated in A/C. Lung sounds slightly coarse and diminished. Heart rates have been tachy in the 110-120, and reaching 160-170 at times, Metropolol given x4 this shift for heart rates. On Levo, Fabien, and parimacore GTTs to keep Maps greater than 65. Art line place at the begining of this shift. Cardona cath in place with good urine output. No BM this shift. R) IJ in place. Follow up: Ween off pressors and vent.
--- NOTE | 2016-11-13 13:53 | NUR ---
Significant Event:Alert, oriented to self. Mouths words and makes gestures, follows commands, moves all extremities. HR in the 110's to 120's. SBP 90's to 110's on Primacor and Levo at 0.15 mcg/kg/min. Follow up:
--- NOTE | 2016-11-13 15:53 | NUR ---
D:Called all the family contacts listed in the patient chart and listed on the white board in the room. Navin Wagner [phone]- voice mail not set up Antwon Lopez [phone]- left voice mail for Navin Wagner to call the hospital on a voice mail. Nephew [phone] - was a message for a medical clinic, no message left Sister [phone] - not a valid phone number [facility] [phone], spoke to charger operator, Dilma, reports that she will update the DON, aRdha Thompson, and Deloris Motion And Time Study Teacher would colaborate to find a next of kin or POA. Navin Wagner- adopted daughter called from [phone] says Antwon Lopez is her and they live on [facility] and that Antwon has POA paper work and will bring copy to [facility] tonight or tomorrow. Macie Padgett-sister Radha or Idania Red Eyes-sister, unable to represent because she is in the [facility] in [place]. Goran Red Eyes -sister, lives in [place], [place], called [facility] and wants to help find the patient's special procedures tech, Mario Crook. Antwon Lopez-Shruthi Wagner's called [facility] to say that he is not POA, but does help patient make decisions. You should call patient's special procedures tech Mario Crook. Mario Crook- Telesales Consultant in [place], [place], called to make inquiry and was asked to call [facility]. [address] [place] [address] . Unable to identify or contact a POA. Next of kin are Sisters Radha Quijano and Goran.
[2016-11-13 16:46] LABS: HEMATOCRIT 24.7 % (37.0-53.0)
[2016-11-13 16:47] LABS: HEMOGLOBIN 7.3 g/dL (12.0-17.0)
[2016-11-13 17:12] LABS: ALBUMIN 3.7 gm/dL (3.5-5.0); ANION GAP 11.5 (10.0-19.0); CALCIUM 8.4 mg/dL (8.5-10.5); CREATININE 2.5 mg/dL (0.6-1.3); PHOSPHORUS 2.3 mg/dL (2.5-4.9); POTASSIUM 3.5 mMol/L (3.7-5.1)
--- NOTE | 2016-11-13 17:23 | NUR ---
D: RESPIRATORY FAILURE I: V2OO, DUONEB R: BREATH SOUNDS DIMINISHED LEFT LUNG, SLIGHTLY COARSE RIGHT LUNG, SXN- SMALL THICK BLD TINGED, ET TUBE SECURE, CUFF AT MINIMAL OCCLUSIVE PRESSURE, ETCO2 36-43, FIO2 RANGED FROM 60% - 100%, FOREHEAD PROBE REPOSITIONED Q2H P: CONTINUE CURRENT THERAPY
[2016-11-14 04:13] LABS: BICARBONATE 39.8 mmol/L (18.0-23.0); PCO2 56 mmHg (35-45)
[2016-11-14 04:14] LABS: PO2 125 mmHg (80-90)
[2016-11-14 04:37] LABS: ALBUMIN 3.6 gm/dL (3.5-5.0); CALCIUM 8.5 mg/dL (8.5-10.5); CREATININE 2.3 mg/dL (0.6-1.3); PHOSPHORUS 2.1 mg/dL (2.5-4.9); POTASSIUM 3.1 mMol/L (3.7-5.1)
[2016-11-14 04:50] LABS: ANION GAP 12.1 (10.0-19.0)
--- NOTE | 2016-11-14 05:22 | NUR ---
No changes made to vent settings this shift. FiO2 currently at 70% for O2 sats of 96-100%. ETCO2 was 39-44 throughout the shift. Breathsounds slightly coarse throughout bilaterally. Suctioning small to moderate amounts of bloody thick secretions. Will continue to monitor patient.
[2016-11-14 13:16] LABS: HEMATOCRIT 25.9 % (37.0-53.0)
[2016-11-14 13:17] LABS: PCO2 51 mmHg (35-45)
[2016-11-14 13:18] LABS: HEMOGLOBIN 7.6 g/dL (12.0-17.0)
[2016-11-14 13:21] LABS: BICARBONATE 35.4 mmol/L (18.0-23.0)
[2016-11-14 13:24] LABS: PO2 42 mmHg (80-90)
[2016-11-14 15:47] LABS: BASOPHIL % 0.2 %; EOSINOPHIL # 0.2 K/uL (0.0-0.5); EOSINOPHIL % 0.8 %; HEMATOCRIT 25.7 % (37.0-53.0); IMMATURE GRANULOCYTE # 0.2 K/uL (0.0-0.3); LYMPHOCYTE # 0.6 K/uL (0.8-4.0); LYMPHOCYTE % 2.9 %; MCH 24.2 pg (27.0-34.0); MCHC 29.6 gm/dL (32.0-36.5); MCV 81.8 fl (83.0-98.0); MONOCYTE # 1.7 K/uL (0.0-1.0); MONOCYTE % 8.9 %; MPV 9.7 fl (9.4-12.4); NEUTROPHIL # (ANC) 16.7 K/uL (1.4-9.0); NEUTROPHIL % 86.2 %; NRBC % 0.8 /100WBC (0-0.00); PLATELET COUNT 188 K/uL (150-450); RBC 3.14 M/uL (4.00-6.00); RDW-CV 21.2 % (11.9-14.6)
[2016-11-14 15:51] LABS: HEMOGLOBIN 7.6 g/dL (12.0-17.0); WBC 19.4 K/uL (4.0-11.0)
--- NOTE | 2016-11-14 17:22 | NUR ---
Significant Event:Patient seems appropriate with assessments, nods head yes/no to questions, tries to mouth words, pt has been ST - SVT frequently throughout shift - Dr Faust notified frequently, Lopressor given x 15mg IVP throughout shift with some improvement but not sustained, levophed gtt up to 0.19 mcg/kg/min, to keep MAP > 60, FiO2 @ 50% and pt desats with activity, up to chair this AM and was ok but desatted upon returning to bed, Dilaudid 0.2mg given x 2 IVP for pain and pt rests after pain meds, Osmolite restarted this AM after residual of 90mls, residual at 1500 assessment = 600mls and was discarded per MD order, tube feedings and H2O flushes now on hold, pt's bowel sounds RARe and abdomen remains distended, landry UOP was good and beginning of shift and minimal to no UOP last 3-4 hrs of shift, Dr Faust notified and Bumex 2mg IVP given x 1, Dr Ruiz and Dr Faust both given frequent updates, see ICU flowsheet for further details and titrations Follow up:MDs considering cardiology consult
[2016-11-14 18:50] LABS: ALBUMIN 3.5 gm/dL (3.5-5.0); ANION GAP 15.5 (10.0-19.0); CALCIUM 8.6 mg/dL (8.5-10.5); CREATININE 2.6 mg/dL (0.6-1.3); MAGNESIUM 1.8 mg/dL (1.8-2.6); POTASSIUM 3.5 mMol/L (3.7-5.1)
[2016-11-14 19:07] LABS: PHOSPHORUS 1.8 mg/dL (2.5-4.9)
[2016-11-15 03:50] LABS: BICARBONATE 37.7 mmol/L (18.0-23.0); PCO2 53 mmHg (35-45)
[2016-11-15 03:52] LABS: PO2 83 mmHg (80-90)
[2016-11-15 04:12] LABS: ALBUMIN 3.3 gm/dL (3.5-5.0); ANION GAP 12.2 (10.0-19.0); CALCIUM 8.4 mg/dL (8.5-10.5); CREATININE 2.5 mg/dL (0.6-1.3); POTASSIUM 3.2 mMol/L (3.7-5.1); TOTAL BILIRUBIN 6.2 mg/dL (0.0-1.5); TOTAL PROTEIN 7.1 g/dL (6.0-8.4)
[2016-11-15 04:18] LABS: BASOPHIL # 0.1 K/uL (0.0-0.2); BASOPHIL % 0.3 %; EOSINOPHIL # 0.1 K/uL (0.0-0.5); EOSINOPHIL % 0.8 %; HEMATOCRIT 24.3 % (37.0-53.0); IMMATURE GRANULOCYTE # 0.2 K/uL (0.0-0.3); IMMATURE GRANULOCYTE % 0.9 %; LYMPHOCYTE # 0.7 K/uL (0.8-4.0); MCH 24.3 pg (27.0-34.0); MCV 80.7 fl (83.0-98.0); MONOCYTE # 1.4 K/uL (0.0-1.0); MPV 10.3 fl (9.4-12.4); NEUTROPHIL # (ANC) 15.2 K/uL (1.4-9.0); NRBC % 0.5 /100WBC (0-0.00); PLATELET COUNT 187 K/uL (150-450); RBC 3.01 M/uL (4.00-6.00); RDW-CV 21.2 % (11.9-14.6)
[2016-11-15 04:21] LABS: HEMOGLOBIN 7.3 g/dL (12.0-17.0); WBC 17.6 K/uL (4.0-11.0)
--- NOTE | 2016-11-15 04:41 | NUR ---
Patient currently ventilated. FiO2 was increased from 50% to 60% this shift. O2 sats have 95-98%. ETCO2 was 32-38 throughout the shift. Breathsounds slightly in the upper lobes bilaterally and diminished in the bases bilaterally. Suctioning scant to small amounts of thick blood tinged secretions. Will continue to monitor patient.
--- NOTE | 2016-11-15 05:28 | NUR ---
Significant Event: Patient remains intubated. Levophed at 0.06mcg/kg/min to keep maps greater than 60. HR's at 1900 150's-160's. Gave 2.5 lopressor. 0.5mg of dig, since HR's 100's-120's. AC mode RR 15 TV 500 Fio2 60%. Rare BS. NO BM. remains off TF. Afebrile. Follow up: Continue on current plan of care.
--- NOTE | 2016-11-15 08:10 | NUR ---
A - NUTRITION F/U. ON VENT, SEDATION OFF. NA+ 132, K+ 3.2, GLU 103, BUN/AUTO SPECIALTY SERVICES MANAGER 60/2.5, ALB 3.3, WBC 17.6. TF OFF D/T 600 ML RESIDUAL YESTERDAY. BS RARE, ABD DISTENDED. CBW: 266# DOWN 24# SINCE ADMISSION D/T DIURESIS, PARACENTESIS. NEEDS RECALCULATED = [id number] KCALS, 81 GM PROTEIN D - AT RISK W/ INADEQUATE NUTRIENT INTAKE R/T ALTERED GI FXN AEB TF ON HOLD. I - GOAL: TO MEET NEEDS VIA EN. M/E - 1) REC RESUME TF W/ OSMOLITE 1.5 AT 20 ML/HR AND ADVANCE TO GOAL RATE OF 50 ML/HR = 1800 KCALS, 75 GM PROTEIN, 914 ML FREE H20. FLUSH W/ 225 ML H20 EVERY 4 HRS. 2) WILL F/U IN 2-4 DAYS.
--- NOTE | 2016-11-15 16:13 | NUR ---
Reviewed chart and went to ICU touch base rounding. Pt has been on ventillator for 10 days, some discussion of possibility of trach placement but nothing decided. Called [facility] and talked with Audrey [phone], she reports in the event of trach placement and need for vent weaning, with [place] [employer], they do not recognize LTAC level of care (80 bed unit) but if pt requiring vent weaning and on vent more than 10 hours a day, they would cover special needs VAU unit (20 bed unit). Recommended starting referral once we know if a plan to place a trach as that unit remains pretty full and sometimes a wait list, but they won't look at referral until a plan for trach in place. Called Cadence at [facility] and gave her an update of pt condition and discussed the above with her, faxed her a pt update. Will keep her informed. Will follow.
--- NOTE | 2016-11-15 17:49 | NUR ---
Significant Event: Patient alert, follows commands, nods head appropiatley. Pupils are equal and reactive. SBP have been 90's-120's, MAP's 60's-70's, HR one teens-120's. Levo is running at 0.02mcg/kg/min. Vent is in AC Rate of 15, TV of 600, FiO2 of 60%, PEEP of 8. O2 sats have been mid to upper 90's. EtCo2 have been 30's. Lung sounds have been clear and diminished. Cardona had 840ml out. Restarted Osmolite 1.0 at 10ml/hr with 200ml H2O flushes Q4HR. Follow up:
[2016-11-15 18:04] LABS: ALBUMIN 3.4 gm/dL (3.5-5.0); ANION GAP 11.5 (10.0-19.0); CALCIUM 8.8 mg/dL (8.5-10.5); CREATININE 2.8 mg/dL (0.6-1.3); MAGNESIUM 1.8 mg/dL (1.8-2.6); PHOSPHORUS 3.4 mg/dL (2.5-4.9); POTASSIUM 3.5 mMol/L (3.7-5.1)
--- NOTE | 2016-11-15 23:20 | NUR ---
Significant Event: Alert. Nods appropriately. Follows commands. Attempts to speak around ETT. ST. 110s-120s. Metoprolol 2.5 mg given x2 for HR >115. Levo at 0.01 mcg/kg/min. CVP mid 20s. 1-2+ edema Temp max 100.7, resolved with fan. A/C 60% Fi02. Lungs clear and dim to slightly coarse. Very little sputum out of ETT. End tidals 30s. Dobhoff to R) nare clamped. TF on hold d/t high residuals. Rare bowel sounds. Dulcolax suppository given. No BM. Folwy draining minimal amount of tea colored urine. Dr. Sim made aware. Dilaudi 0.5 mg given x1 for pain in vasiliy LEs. Bath complete. Follow up: Wean vent and levo. Possible PICC placement in AM.
[2016-11-16 04:54] LABS: BICARBONATE 35.4 mmol/L (18.0-23.0); PCO2 51 mmHg (35-45); PO2 74 mmHg (80-90)
--- NOTE | 2016-11-16 04:55 | NUR ---
Significant Event: Pt is alert. He nods appropriatly. Pupils are equal and reactive. Moves all extremities spontaneously and to command. Generalized weakness. On a Levo gtt to keep Maps greater than 60. PRN metropolol to keep heart rates less than 115. Intubated in A/C. Cardona cath in place with low urine output at times. 1 large, dark, loose BM this shift. R) IJ in place. Tube feed were shut off at the beginging of this shift due to high residuals. Dobhof in the R) nare. Follow up: Possible PICC tuesday or . Possible MARTINA and cardiovert on tuesday.
[2016-11-16 05:23] LABS: ALBUMIN 3.2 gm/dL (3.5-5.0); ANION GAP 12.2 (10.0-19.0); CALCIUM 8.6 mg/dL (8.5-10.5); CREATININE 2.8 mg/dL (0.6-1.3); PHOSPHORUS 3.5 mg/dL (2.5-4.9); POTASSIUM 3.2 mMol/L (3.7-5.1)
[2016-11-16 05:46] LABS: BASOPHIL # 0.1 K/uL (0.0-0.2); BASOPHIL % 0.3 %; EOSINOPHIL # 0.3 K/uL (0.0-0.5); EOSINOPHIL % 1.4 %; HEMATOCRIT 24.2 % (37.0-53.0); IMMATURE GRANULOCYTE # 0.2 K/uL (0.0-0.3); IMMATURE GRANULOCYTE % 0.9 %; LYMPHOCYTE # 0.6 K/uL (0.8-4.0); LYMPHOCYTE % 3.1 %; MCH 24.6 pg (27.0-34.0); MCHC 30.6 gm/dL (32.0-36.5); MCV 80.4 fl (83.0-98.0); MONOCYTE # 1.1 K/uL (0.0-1.0); MONOCYTE % 5.6 %; MPV 9.8 fl (9.4-12.4); NEUTROPHIL # (ANC) 16.7 K/uL (1.4-9.0); NEUTROPHIL % 88.7 %; NRBC % 0.2 /100WBC (0-0.00); PLATELET COUNT 175 K/uL (150-450); RBC 3.01 M/uL (4.00-6.00); RDW-CV 21.6 % (11.9-14.6)
[2016-11-16 05:48] LABS: HEMOGLOBIN 7.4 g/dL (12.0-17.0); WBC 18.8 K/uL (4.0-11.0)
[2016-11-16 10:07] LABS: INR - (THERAPEUTIC) 2.24 (0.92-1.07); PROTIME 23.7 SECONDS (9.8-11.4)
[2016-11-16 13:48] LABS: INR - (THERAPEUTIC) 1.98 (0.92-1.07); PROTIME 20.9 SECONDS (9.8-11.4)
--- NOTE | 2016-11-16 17:20 | NUR ---
Significant Event: Patient is alert. Nods appropriately. SBP 90-100's with maps 60-70's. HR 110-120. Patient nods head to soreness and extremity pain, but shakes head no to dilaudid. TF still on hold for residuals 200-300. Paracentesis ordered when INR is < 1.5. INR of 2.2 this am and 2 units of FFP given. INR recheck 1.9. Vent mode switched to CPAP this am. Patient tolerated well until around 1400 and vent mode switched back to AC. 60% with a peep of 8. Tidal volume 600. Patient has been calm and cooperative during shift. Attempts to communicate but very difficult to understand. Follow Up: Paracentesis planned when INR <1.5. Possible PICC/midline placement tomorrow. Possible MARTINA and cardioversion Tuesday.
[2016-11-16 21:08] LABS: ALBUMIN 3.3 gm/dL (3.5-5.0); CALCIUM 8.6 mg/dL (8.5-10.5); PHOSPHORUS 3.7 mg/dL (2.5-4.9)
[2016-11-17 04:19] LABS: BICARBONATE 33.2 mmol/L (18.0-23.0); PCO2 50 mmHg (35-45); PO2 68 mmHg (80-90)
[2016-11-17 04:34] LABS: ALBUMIN 3.2 gm/dL (3.5-5.0); ANION GAP 13.9 (10.0-19.0); CALCIUM 8.7 mg/dL (8.5-10.5); CREATININE 3.1 mg/dL (0.6-1.3); POTASSIUM 3.9 mMol/L (3.7-5.1); TOTAL PROTEIN 7.5 g/dL (6.0-8.4)
[2016-11-17 04:35] LABS: TOTAL BILIRUBIN 8.5 mg/dL (0.0-1.5)
[2016-11-17 04:59] LABS: BASOPHIL # 0.1 K/uL (0.0-0.2); BASOPHIL % 0.3 %; EOSINOPHIL # 0.3 K/uL (0.0-0.5); EOSINOPHIL % 1.9 %; HEMATOCRIT 25.8 % (37.0-53.0); IMMATURE GRANULOCYTE # 0.2 K/uL (0.0-0.3); IMMATURE GRANULOCYTE % 1.4 %; LYMPHOCYTE # 0.7 K/uL (0.8-4.0); LYMPHOCYTE % 3.7 %; MCH 24.3 pg (27.0-34.0); MCHC 30.2 gm/dL (32.0-36.5); MCV 80.4 fl (83.0-98.0); MONOCYTE # 0.8 K/uL (0.0-1.0); MONOCYTE % 4.8 %; MPV 10.6 fl (9.4-12.4); NEUTROPHIL # (ANC) 15.5 K/uL (1.4-9.0); NEUTROPHIL % 87.9 %; NRBC % 0.3 /100WBC (0-0.00); PLATELET COUNT 200 K/uL (150-450); RBC 3.21 M/uL (4.00-6.00); RDW-CV 21.6 % (11.9-14.6)
[2016-11-17 05:04] LABS: HEMOGLOBIN 7.8 g/dL (12.0-17.0); INR - (THERAPEUTIC) 2.05 (0.92-1.07); PROTIME 21.7 SECONDS (9.8-11.4); WBC 17.6 K/uL (4.0-11.0)
--- NOTE | 2016-11-17 05:14 | NUR ---
Alert, Follow commands appropriatley. No c/o pain or n/t. ST with HR 100-120s. Metoprolol given x1 this shift for HR >115. Levo off towards end of shift with current MAPs upper 60-mid 70s. Continues on vent 60% Fio2, PEEP 8. Overbreathes set rate. Currently in CPAP this morning. High residuals via dobhoff, Regalan started with some improvement; Bowel sounds have become more active after starting. No BM this shift. Follow up: Possible extubation today. Possible thoracentisis of abdomen. Continue to monitor.
[2016-11-17 10:38] LABS: INR - (THERAPEUTIC) 1.77 (0.92-1.07); PROTIME 18.7 SECONDS (9.8-11.4)
--- NOTE | 2016-11-17 11:41 | NUR ---
A-NUTRITION F/U POSSIBLE EXTUBATION TODAY; ON CPAP THIS AM. PARACENTESIS PLANNED FOR TODAY IF INR LEVEL IS OK. DECREASED UOP. ABSENT BS. HIGH RESIDUALS FROM TF; REGLAN STARTED LAST NIGHT W/SOME IMPROVEMENT. PALLIATIVE CARE CONSULTED. LABS: NA 133, K+ 3.9, GLU 93, BUN 81, ROLLER SHOP UTILITY WORKER 3.1, ALB 3.2 DIET RX: NPO; TF CURRENTLY OFF EST NUTR NEEDS: [id number] KCALS AND 81 GM PROTEIN D-AT NUTRITION RISK W/INADEQUATE NUTRIENT INTAKE R/T ALTERED GI FXN AEB TF ON HOLD, HIGH RESIDUALS, ABSENT BS. I-IF PT IS NOT EXTUBATED, RESTART OSMOLITE 1.5 AT 20 ML/HR AND ADVANCE PT TOLERATES, TO GOAL OF 50 ML/HR M/E-GOAL: START APPROPRIATE DIET RX WHEN MEDICALLY INDICATED 1)F/U DIET RX, GI, AND POC IN 2-3 DAYS 2)ASSIST NEEDED
[2016-11-17 13:37] LABS: INR - (THERAPEUTIC) 1.71 (0.92-1.07); PROTIME 18.1 SECONDS (9.8-11.4)
--- NOTE | 2016-11-17 14:41 | NUR ---
Pallative care consult today. I did get a call to fax a letter to the [facility] [place] [phone] so his sister can come visit and get money for eric Bright [phone].
[2016-11-17 15:36] LABS: PERITONEAL FLUID TURBIDITY 2+ (CLEAR)
--- NOTE | 2016-11-17 17:04 | NUR ---
Significant Event: Patient alert, follows commands and makes needs known. LINDA orientation. PERRLA. ST on electronic device monitor. Currently on levophed for hemodynamic support. Venous stasis to lower ext, WOC consulted this shift and had orders received. Afebrile. Did receive one dose of lopressor for tachycardia. Currently has been on CPAP support throughout the day 03/08 currently at 50%. Up to chair x2 with mechanical lift. Paracentesis today, drained 5000ml of boateng fluid. Cultures were sent. Cardona draining liza urine, but has slowed progressively throughout the shift. All physicians are aware of the minimal amount of urine. Creatine is rising along with BUN. Did receive one dose of albumin. 4 units of FFP for support of PT/INR. Follow up:
--- NOTE | 2016-11-17 17:04 | NUR ---
I have reviewed and agree with the charting of SN Uriel.
[2016-11-17 18:27] LABS: % PERITONEAL FLUID MESO 1 % (0-0); % PERITONEAL FLUID MONO/MACRO 5 % (0-0); % PERITONEAL FLUID NEUT 81 % (0-25)
[2016-11-17 21:13] LABS: ALBUMIN 3.4 gm/dL (3.5-5.0); ANION GAP 16.8 (10.0-19.0); CALCIUM 8.6 mg/dL (8.5-10.5); CREATININE 3.3 mg/dL (0.6-1.3); MAGNESIUM 2.1 mg/dL (1.8-2.6); PHOSPHORUS 4.3 mg/dL (2.5-4.9); POTASSIUM 3.8 mMol/L (3.7-5.1)
[2016-11-18 04:42] LABS: BICARBONATE 34.2 mmol/L (18.0-23.0); PCO2 47 mmHg (35-45); PO2 80 mmHg (80-90)
--- NOTE | 2016-11-18 04:42 | NUR ---
Patient remained in Cpap/PS of 03/08 until almost 2099. Patient was swtiched back to CMV of 15, VT 600 P5. FiO2 currently at 50% for O2 sats of 92-94%. ETCO2 was 32-35 throughout the shift. Breathsounds slightly coarse throughout bilaterally, suctioning scant to small amounts of thick creamy secretions. Possible extubation today. Will continue to monitor patient.
[2016-11-18 05:04] LABS: ALBUMIN 3.1 gm/dL (3.5-5.0); ANION GAP 14.5 (10.0-19.0); CALCIUM 8.7 mg/dL (8.5-10.5); CREATININE 3.2 mg/dL (0.6-1.3); PHOSPHORUS 4.4 mg/dL (2.5-4.9); POTASSIUM 3.5 mMol/L (3.7-5.1)
[2016-11-18 05:40] LABS: BASOPHIL # 0.1 K/uL (0.0-0.2); BASOPHIL % 0.5 %; EOSINOPHIL # 0.3 K/uL (0.0-0.5); EOSINOPHIL % 2.1 %; HEMATOCRIT 26.1 % (37.0-53.0); HEMOGLOBIN 8.1 g/dL (12.0-17.0); IMMATURE GRANULOCYTE # 0.2 K/uL (0.0-0.3); IMMATURE GRANULOCYTE % 1.4 %; LYMPHOCYTE # 0.7 K/uL (0.8-4.0); LYMPHOCYTE % 4.9 %; MCH 24.5 pg (27.0-34.0); MCV 78.9 fl (83.0-98.0); MONOCYTE # 0.9 K/uL (0.0-1.0); MONOCYTE % 5.9 %; MPV 9.9 fl (9.4-12.4); NEUTROPHIL # (ANC) 12.5 K/uL (1.4-9.0); NEUTROPHIL % 85.2 %; NRBC % 0.7 /100WBC (0-0.00); PLATELET COUNT 199 K/uL (150-450); RBC 3.31 M/uL (4.00-6.00); RDW-CV 22.1 % (11.9-14.6); WBC 14.7 K/uL (4.0-11.0)
--- NOTE | 2016-11-18 06:10 | NUR ---
Significant Event: PATIENT ALERT, FOLLOWS COMMANDS. SENSITIVE TO TOUCH THROUGHOUT. SPONTANEOUS COUGH, GAG INTACT. OVERBREATHES VENT SET RATE. CONTINUES TO BE TACHYCARDIC, PRN LOPRESSOR GIVEN X1 WITH NO EFFECT. CONTINUES ON LEVOPHED GTT, TITRATING FOR MAP >65. CURRENTLY AT 0.08MCG/KG/MIN. AFEBRILE. CONTINUES ON VENT AC 50% FIO2, PEEP 8. MUKHERJEE WITH MARGINAL TO ADEQUATE UOP. DOBHOFF TO RIGHT NARE, 65CM. CLAMPED DUE TO HIGH RESIDUALS. 0300 RESIDUAL 580, GAVE BACK 500. BM X2 THIS SHIFT, LIQUID BLACK STOOL. CONTINUES ON LACTULOSE PER DOBHOFF, CONTINUES WITH REGLAN IV. RIGHT IJ MAC INTRODUCER. RIGHT RADIAL CASSIE. Follow up: ATTEMPT EXTUBATION.
[2016-11-18 09:34] LABS: INR - (THERAPEUTIC) 2.03 (0.92-1.07); PROTIME 21.5 SECONDS (9.8-11.4)
--- NOTE | 2016-11-18 16:55 | NUR ---
Pt extubated at 0955 to 70% High Flow NC. Continued with Duoneb treatments and will wean as tolerated
[2016-11-18 18:19] LABS: ALBUMIN 3.3 gm/dL (3.5-5.0); ANION GAP 17.6 (10.0-19.0); CALCIUM 8.7 mg/dL (8.5-10.5); CREATININE 3.3 mg/dL (0.6-1.3); MAGNESIUM 2.3 mg/dL (1.8-2.6); PHOSPHORUS 5.2 mg/dL (2.5-4.9); POTASSIUM 3.6 mMol/L (3.7-5.1)
--- NOTE | 2016-11-18 19:11 | NUR ---
Significant Event: extubated from the vent at 0955 to hi-flow NC at 70%, passed bedside swallow, advancing diet as tolerated. Neurologically, patient is A/O x3 with occasional forgetfulness
[2016-11-19 03:49] LABS: BICARBONATE 31.9 mmol/L (18.0-23.0); PCO2 54 mmHg (35-45); PO2 68 mmHg (80-90)
[2016-11-19 04:09] LABS: ALBUMIN 3.1 gm/dL (3.5-5.0); ANION GAP 16.5 (10.0-19.0); CALCIUM 8.5 mg/dL (8.5-10.5); CREATININE 3.4 mg/dL (0.6-1.3); PHOSPHORUS 5.5 mg/dL (2.5-4.9); POTASSIUM 3.5 mMol/L (3.7-5.1)
--- NOTE | 2016-11-19 05:32 | NUR ---
Significant Event: ALERT, CONFUSED COMMENTS AT TIMES. FORGETFUL. D/O TO PLACE. HR 110'S. WEANED LEVO TO 0.05MCG/KG/MIN. HI-FLOW AT 70%. LUNG SOUNDS RALES TO CLEAR/DIM. HYPOACTIVE BOWEL SOUNDS. BM X4, MORE WATERY TOWARD AM, LAST BM WAS MORE CLEAR WITH FLECKS OF STOOL. LOW UOP, 205ML OF UOP. REFUSED LEG PUMPS. UP TO CHAIR THIS AM. Follow up: CONTINUE TO MONITOR. OSCAR TAYLOR
--- NOTE | 2016-11-19 10:46 | NUR ---
A - NUT F/U. EXTUABTED. OG DC'D. FORGETFUL/CONFUSED. PASSED BEDSIDE SWALLOW - ADV DIET YEE. 1-2+ EDEMA. ABD DISTENDED. LABS: K+ 3.5, BUN/CR 93/3.4, ALB 3.1, PHOS 5.5, WBC 14.7, HGB/HCT 8.1/26.1. MEDS: SSI, REGLAN, MERREM, ZYVOX, LACTULOSE, FOLIC ACID/THIAMINE, PROTONIX. DIET: NONE ORDERED YET. WAS RECEIVING OSMOLITE 1.5. NEEDS: [id number] KCAL, 81 G PRO D - INADEQUATE ORAL NUTRIENT INTAKE R/T RECENT INTUBATION AEB DIET ORDER HX. I - GOAL FOR ORAL INTAKE TOLERANCE. WILL ADD ENSURE BID TO INC ORAL INTAKE WHEN DIET ADVANCED M/E - WILL MONITOR INTAKE F/U IN 3-5 DAYS.
--- NOTE | 2016-11-19 15:05 | NUR ---
I did call Cadence at [facility] and updated her on pt. She stated he has been with them since 2008 and normally up there he is on 4-8liters and his concentrator does go up to 10liters if needed. Will continue to follow.
--- NOTE | 2016-11-19 15:47 | NUR ---
SIGNIFICANT EVENT: PATIENT ALERT, ORIENTED X3. OPENS EYES SPOANTANEOUSLY AND TO VOICE. PUPILS EQUAL AND REACTIVE. PATIENT'S SPEECH IS SLOW AND MUMMBLED AT TIMES. MAKES ALL NEEDS KNOWN. NO FACIAL ASYMMETRY. DENEIS ANY HEADACHES OR PAIN. PATIENT MOVES ALL 4 EXTREMITIES SPONTANEOUSLY AND TO COMMANDS. GENERALIZED WEAKNESS, EQUAL STRENGTH THROUGHOUT. PATIENT MAKES CONFUSED COMMENTS AT TIMES, RE-ORIENTS EASILY. PATIENT HAS BEEN IN SINUS TACHY CARDIA, HR 110S. PULSES PALPABLE THROUGHOUT. LEVOPHED DRIP TO KEEP MAP>65, CURRENTLY INFSUING AT 0.06 MCG/KG/MIN. GENRALIZED EDEMA PRESENT. ALDACTONE AND BUMEX ADMINISTRED TODAY PER MD ORDER. AFEBRILE. R) ART LINE D/C'D TODAY, NO COMPLICATIONS, NO HEMATOMAS. PATIENT CONTINUE TO 70% HIGH FLOW NASAL CANNULAT, SATS LOWER 90S. BOWEL SOUNDS ACTIVE, 2 LOOSE BMS TODAY, LIQUID OUTPUT, C-DIFF TESTED, NEGATIVE. MUKHERJEE CLEAN AND INTACT, PATENT, LOW URINE OUTPUT, MD NOTIFIED. NO NEW SKIN ISSUES NOTED. BATH COMPLETED TODAY. PATIENT REPOSITIONED EVERY 2 HOURS. PER WOC'S ORDERS, BILATERAL LOWER EXTREMITIES WRAPED IN NSAREEN BANDAGE AND ELEVATED. R) ELBOW ELEVATED AND WRAPED IN NASREEN BANDAGE. R) PICC FLUSHED WELL, GOOD BLOOD RETURN. LEVOPHED AND NS INFUSING. FOLLOW UP: CONTINUE TO MONITOR, WEAN OFF LEVOPHED DRIP AND O2
[2016-11-19 18:44] LABS: ANION GAP 14.5 (10.0-19.0); CALCIUM 8.5 mg/dL (8.5-10.5); CREATININE 3.6 mg/dL (0.6-1.3); MAGNESIUM 2.4 mg/dL (1.8-2.6); PHOSPHORUS 6.1 mg/dL (2.5-4.9); POTASSIUM 3.5 mMol/L (3.7-5.1)
--- NOTE | 2016-11-20 04:47 | NUR ---
Significant Event: PATIENT ALERT, ORIENTED TO PERSON AND PLACE. CONFUSED STATEMENTS AT TIMES. DENIES NUMBNESS/TINGLING/PAIN THROUGHOUT. MOVES UPPER EXTREMITIES SPONTANEOUSLY, MODERATE STRENGTH. LITTLE MOVEMENT OF LOWER EXTREMITIES SPONTANEOUSLY, WEAK STRENGTH BILATERAL LOWER EXTREMITIES. CONTINUES ST, TITRATING LEVOPHED GTT FOR MAP >60 CURRENTLY AT 0.06MCG/KG/MIN. AFEBRILE. CONTINUES ON HIGH FLOW NASAL CANNULA AT 70%. DESAT NOTED WITH ACTIVITY. MUKHERJEE WITH LOW UOP, DR NELSON AWARE. LARGE WATERY BOWEL MOVEMENT. ATTEMPTED DIET, TOLERATED FOOD, COUGHING NOTED AFTER THIN LIQUIDS. PICC TO RIGHT UPPER ARM, TRIPLE LUMEN. Follow up: FAMILY REQUESTS MEETING WITH MD'S TODAY IF POSSIBLE.
[2016-11-20 05:54] LABS: ALBUMIN 3.1 gm/dL (3.5-5.0); ANION GAP 16.7 (10.0-19.0); CALCIUM 8.7 mg/dL (8.5-10.5); MAGNESIUM 2.6 mg/dL (1.8-2.6); POTASSIUM 3.7 mMol/L (3.7-5.1); TOTAL PROTEIN 7.5 g/dL (6.0-8.4)
[2016-11-20 05:56] LABS: TOTAL BILIRUBIN 13.4 mg/dL (0.0-1.5)
--- NOTE | 2016-11-20 17:44 | NUR ---
Significant Event: Patient is A&O to person/place, makes confused statement at times, reorients easily. Follows commands. Moderate strength on upper extremities. Pupils are equal and reactive. SBP have been 70's-90's, MAP's 60's-70's, HR one teens. Levo is running at 0.04mcg/kg/min. Patient is on 70% HI-Flow NC with o2 sats 87-92%, RR teens-20's. Lung sounds are clear and diminished. Cardona had 18ml out. Gave 4mg Bumex X1 then started Bumex gtt at 2mg/hr. Follow up:
[2016-11-20 18:27] LABS: ALBUMIN 3.4 gm/dL (3.5-5.0); ANION GAP 17.7 (10.0-19.0); CALCIUM 8.6 mg/dL (8.5-10.5); POTASSIUM 3.7 mMol/L (3.7-5.1)
[2016-11-20 18:28] LABS: CREATININE 4.4 mg/dL (0.6-1.3); MAGNESIUM 2.7 mg/dL (1.8-2.6)
--- NOTE | 2016-11-21 03:47 | NUR ---
Significant Event: Alert. D/o to time at times. Confused comments. Mumbled speech. Pupils 3mm and brisk. Equal, moderate strength in upper extremities, weak in lower extremities. ST. 1-2+ edema. Levo at 0.04 mcg/kg/min. 75% hi-flow NC. Lungs clear and dim. Desats with activity. Hypoactive bowel sounds. Abdomen firm and distended. 2 watery stools. Cardona drained 10 ml of concentrated urine. Dilaudid x1 for pain in LEs. Follow up: Speech eval today.
[2016-11-21 04:58] LABS: ALBUMIN 3.2 gm/dL (3.5-5.0); ANION GAP 17.5 (10.0-19.0); CALCIUM 7.9 mg/dL (8.5-10.5); POTASSIUM 3.5 mMol/L (3.7-5.1)
[2016-11-21 05:01] LABS: CREATININE 4.2 mg/dL (0.6-1.3)
[2016-11-21 05:06] LABS: BASOPHIL # 0.1 K/uL (0.0-0.2); BASOPHIL % 0.8 %; EOSINOPHIL # 0.3 K/uL (0.0-0.5); EOSINOPHIL % 3.5 %; HEMATOCRIT 25.4 % (37.0-53.0); IMMATURE GRANULOCYTE # 0.1 K/uL (0.0-0.3); IMMATURE GRANULOCYTE % 0.9 %; LYMPHOCYTE # 0.6 K/uL (0.8-4.0); LYMPHOCYTE % 6.3 %; MCV 81.9 fl (83.0-98.0); MONOCYTE # 0.5 K/uL (0.0-1.0); MONOCYTE % 4.9 %; MPV 10.7 fl (9.4-12.4); NEUTROPHIL # (ANC) 7.7 K/uL (1.4-9.0); NEUTROPHIL % 83.6 %; NRBC % 0.5 /100WBC (0-0.00); RDW-CV 23.1 % (11.9-14.6); WBC 9.2 K/uL (4.0-11.0)
[2016-11-21 05:07] LABS: HEMOGLOBIN 7.4 g/dL (12.0-17.0); MCH 23.9 pg (27.0-34.0); MCHC 29.1 gm/dL (32.0-36.5); PLATELET COUNT 128 K/uL (150-450)
--- NOTE | 2016-11-21 20:08 | NUR ---
Significant Event: Patient is disoriented to time, forgetful at times, makes confused statements at times. Pupils are equal and reactive, follows all commands. SBP have been upper 70's-90's, MAP's 60's-70's, HR have bee low 100's-one teens. Patient is on 80% Hi-Flow NC with o2 sats 88-94%, RR teens. Lung sounds are clear and diminished. Cardona had 10ml out. Patient had Hemodialysis today, they removed 1.5L. Patient will have Hemodialysis again tomorrow. Follow up:
[2016-11-21 20:19] LABS: ALBUMIN 4.1 gm/dL (3.5-5.0); CALCIUM 8.6 mg/dL (8.5-10.5); CREATININE 3.7 mg/dL (0.6-1.3); PHOSPHORUS 6.5 mg/dL (2.5-4.9)
[2016-11-21 20:21] LABS: MAGNESIUM 2.8 mg/dL (1.8-2.6)
--- NOTE | 2016-11-22 03:35 | NUR ---
Significant Event: Alert. D/o to time at times. 2 runs of V tach lasting around 45 seconds each, HR in 170s. Started dobutamine gtt at 2.5 mcg/kg/min. Gave digoxin and sotalol. Rates now back to baseline 100-110s. Levo gtt at 0.1 mcg/kg/min. Hi flow NC 80%. Lungs slightly coarse. Desats easily. 2 liquid stools. Cardona drained no urine. Pain well controlled with scheduled roxycodone. Follow up: Dialysis today
[2016-11-22 04:46] LABS: ALBUMIN 3.9 gm/dL (3.5-5.0); ANION GAP 22.4 (10.0-19.0); CALCIUM 8.5 mg/dL (8.5-10.5); PHOSPHORUS 7.8 mg/dL (2.5-4.9); POTASSIUM 4.4 mMol/L (3.7-5.1)
[2016-11-22 04:50] LABS: MCV 85.8 fl (83.0-98.0); MPV 10.4 fl (9.4-12.4); RBC 3.03 M/uL (4.00-6.00); RDW-CV 23.4 % (11.9-14.6)
[2016-11-22 04:52] LABS: HEMOGLOBIN 7.5 g/dL (12.0-17.0); MCH 24.8 pg (27.0-34.0); MCHC 28.8 gm/dL (32.0-36.5); PLATELET COUNT 84 K/uL (150-450)
[2016-11-22 05:42] LABS: ABSOLUTE NEUTROPHIL CT (ANC) 10.2 K/uL (1.4-9.0); LYMPHOCYTE # 0.7 K/uL (0.8-4.0); LYMPHOCYTE % 6 %; MONOCYTE # 0.1 K/uL (0.0-1.0); SEGMENTED NEUTROPHIL # 10.2 K/uL (1.4-9.0); SEGMENTED NEUTROPHIL % 93 %
[2016-11-22 11:23] LABS: PO2 62 mmHg (80-90)
--- NOTE | 2016-11-22 11:27 | NUR ---
A-NUTRITION F/U DIALYSIS LINE PLACED YESTEDAY AND PT HAD DIALYSIS; 1.5 L REMOVED. PT TO HAVE DIALYSIS AGAIN TODAY. ON HIGH FLOW NASAL CANULA; 80%. LABS: NA 137, K+ 4.4, GLU 42, BUN 76, SPORTS INTERN 4.0, ALB 3.9 MEDS: ALBUMIN, BETAPACE DIET RX: CONSISTENT CARB/MECH SOFT W/NECTAR THICK LIQUIDS. PO INTAKE HAS BEEN POOR; 0-25% EST NUTR NEEDS (RE-EVALUATED D/T DIALYSIS): 9038-1182 KCALS (30-35 KCALS/KG IBW) AND 71-92 GM PROTEIN (1.2-1.3 GM/KG IBW) D-AT NUTRITION RISK W/INADEQUATE ORAL INTAKE R/T ALTERED RESP. FXN, DIFF. SWALLOWING AEB HIGH FLOW, ALTERED FOOD/FLUIDS CONSISTENCY, INTAKE RECORDS. I-ADDED MAGIC CUP BID AT L/D M/E-GOAL: PO INTAKE >/=505 BY DISCHARGE 1)IF PT'S PO INTAKE DOES NOT IMPROVE, CONSIDER ENTERAL NUTRITION 2)F/U PO INTAKE, SUPPLEMENT, AND POC IN 2-3 DAYS 3)ASSIST NEEDED
[2016-11-22 11:29] LABS: BICARBONATE 20.3 mmol/L (18.0-23.0); PCO2 75 mmHg (35-45)
[2016-11-22 16:07] LABS: PCO2 60 mmHg (35-45)
[2016-11-22 16:08] LABS: BICARBONATE 25.7 mmol/L (18.0-23.0); PO2 91 mmHg (80-90)
--- NOTE | 2016-11-22 16:39 | NUR ---
SIGNIFICANT EVENT: Pt was reintubated at 12:00 due to increased o2 demands. Currently on 90% FiO2. Low temp of 91.3, now up to 95.4. Vaso started and maxed out. Levo maxed, dobutamine increased to 5. Dialysis today. BM X1. Dulce patent 20MLs out this shift, liza in color. Family phone conference tomorrow.
[2016-11-23 04:14] LABS: BICARBONATE 25.4 mmol/L (18.0-23.0)
[2016-11-23 04:15] LABS: PCO2 45 mmHg (35-45); PO2 67 mmHg (80-90)
[2016-11-23 04:40] LABS: ALBUMIN 3.8 gm/dL (3.5-5.0); ANION GAP 17.9 (10.0-19.0); CALCIUM 8.4 mg/dL (8.5-10.5); CREATININE 2.9 mg/dL (0.6-1.3); PHOSPHORUS 4.4 mg/dL (2.5-4.9); POTASSIUM 3.9 mMol/L (3.7-5.1)
--- NOTE | 2016-11-23 05:09 | NUR ---
Responds to slight stimuli. Right pupil is dialated an fixed at 6cm. SR with HR 70-90s. Continues on Vaso, Levo, Dobutamine and now Epi to keep MAPs >60. Tmax 97. Continues on AC with Fi02 of 80%, PEEP 5 with o2 sats at 90-92%. No BM this shift. Follow up: Family meeting at 1030 today.
--- NOTE | 2016-11-23 11:58 | NUR ---
Speech Tx: Per discussion with pt's RN, will place pt on hold due to decreased medical status. Please reconsult this service if pt's medical status improved and pt is ready for additional speech Tx. Lily Hogue M.A. ANNA-PERSONNEL AND PAYROLL TECHNICIAN
--- NOTE | 2016-11-23 17:15 | NUR ---
D: RESPIRATORY FAILURE I: V2OO, ALBUTEROL MDI R: BREATH SOUNDS COARSE TO SLIGHTLY COARSE, DECREASED LOWER LOBES, SXN-SCANT BLOODY, ET TUBE SECURE, CUFF AT MINIMAL OCCLUSIVE PRESSURE, ETCO2 23-26 P: CONTINUE CURRENT THERAPY
--- NOTE | 2016-11-23 17:38 | NUR ---
Significant Event: Patient responds to verbal stimuli, will nod to questions, wiggles toes on RLE. Pupils equal, brisk and reactive to light bilaterally, 3mm. Remains on vent A/C mode, 70% FiO2. Dobutamine drip stopped, able to titrate Epi to .2 this shift, MAP's 60-70s. Vaso et Levo maxed out. 11cc's urine output this shift, bladder scan <100. conf call made with 2 sisters. They requested time to speak with a 3rd sister before making a decision on comfort cares. No dialysis today, will hold per Dr Rubi
[2016-11-24 04:22] LABS: PCO2 42 mmHg (35-45); PO2 74 mmHg (80-90)
[2016-11-24 04:44] LABS: ALBUMIN 3.4 gm/dL (3.5-5.0); ANION GAP 15.6 (10.0-19.0); CALCIUM 8.5 mg/dL (8.5-10.5); CREATININE 3.7 mg/dL (0.6-1.3); POTASSIUM 3.6 mMol/L (3.7-5.1)
[2016-11-24 04:49] LABS: BASOPHIL % 0.2 %; EOSINOPHIL # 0.3 K/uL (0.0-0.5); EOSINOPHIL % 2.2 %; IMMATURE GRANULOCYTE # 0.1 K/uL (0.0-0.3); IMMATURE GRANULOCYTE % 0.5 %; LYMPHOCYTE # 0.6 K/uL (0.8-4.0); MONOCYTE # 0.7 K/uL (0.0-1.0); MONOCYTE % 5.3 %; NEUTROPHIL # (ANC) 10.9 K/uL (1.4-9.0); NEUTROPHIL % 86.8 %; NRBC % 0.5 /100WBC (0-0.00); RBC 3.05 M/uL (4.00-6.00); RDW-CV 23.2 % (11.9-14.6); WBC 12.5 K/uL (4.0-11.0)
[2016-11-24 04:52] LABS: HEMOGLOBIN 7.3 g/dL (12.0-17.0); MCH 23.9 pg (27.0-34.0); MCHC 30.4 gm/dL (32.0-36.5)
[2016-11-24 04:53] LABS: MCV 78.7 fl (83.0-98.0); PLATELET COUNT 67 K/uL (150-450)
--- NOTE | 2016-11-24 05:31 | NUR ---
FLORENTIN. Follows commands at times. Nods head appropriatley to questions. Epi off this shift. Continues on Levo and Vaso max. Continues in AC at 90% Fio2. Follow up: Family phone conference. Possible Nxstage or Dialysis.
--- NOTE | 2016-11-24 12:59 | NUR ---
I did work with Emi with pallative care to be proactive with plans for burial. I did call [facility] and left a vm but then called listed on his information the [facility] in [place] [phone] and Niels stated he will look into it with the [place] and see how that works. Emi then contacted his sister and she stated they would rather have the [facility] in [place] [phone]. 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 Emi to leave a progress note.
--- NOTE | 2016-11-24 15:39 | NUR ---
Pt. cont'd to be intubated t/o day. ST plan to follow-up and assess swallow when pt. extubated and assessment appropriate.
--- NOTE | 2016-11-24 15:58 | NUR ---
Significant Event: Alert, nods, but unsure if fully understanding. Opens eyes spontaneously. Moves spontaneously x4 extremities. Follows commands with multiple prompting and mirroring. Vasopressin at 0.04 units/min and Levophed at 0.04 mcg/kg/min. Bradycardic. Afebrile. A/C Fi02 70%. Lungs coarse throughout and dim in bases. Blood tinged sputum. Hypoactive bowel sounds. No BM. Cardona drained 92 ml tea colored urine. Dialysis today. Denies pain. Follow up: Family to come tonight or tomorrow
--- NOTE | 2016-11-24 19:52 | NUR ---
Significant Event: Patient remains on vent, AC mode 90%FiO2. Able to wean down to 70% FiO2. Levo titrated down to 0.02, Vaso maxed. MAP's 60-80. Hemodialysis performed this afternoon. Family called et will try to be up tonight or tomorrow night. Cardona drains minimal amounts of liza urine. Transferred care to ZARINA Russo at approx 1455.
--- NOTE | 2016-11-24 19:56 | NUR ---
Patient alert, nonverbal, follows commands. Opens eyes et nods head to questions. On Vent, AC mode, 90%FiO2, weaned down to 70% FiO2. Levo titrated down to 0.04, vaso still being given. Map's 60s-80s. Very small amounts of liza urine draining from landry. Hemodialysis today. Family will be here either tonight or tomorrow to allow us to withdraw cares. transferred care to ZARINA Russo at [phone]
[2016-11-24 22:37] LABS: ALBUMIN 3.4 gm/dL (3.5-5.0); ANION GAP 14.5 (10.0-19.0); CALCIUM 8.3 mg/dL (8.5-10.5); CREATININE 2.8 mg/dL (0.6-1.3); MAGNESIUM 2.5 mg/dL (1.8-2.6); PHOSPHORUS 2.8 mg/dL (2.5-4.9); POTASSIUM 3.5 mMol/L (3.7-5.1)
--- NOTE | 2016-11-24 23:22 | NUR ---
1914: NILA, PATIENT'S SISTER, CALLED TO INFORM US THAT THEY WILL BE COMING TOMORROW MORNING. THEY ASKED ABOUT THE PATIENT'S CONDITION, UPDATED THEM ON CURRENT CARE. I SAID WE WILL CONTINUE CARES UNTIL THEY ARRIVE TOMORROW AND DISCUSS A PLAN.
[2016-11-25 04:14] LABS: BICARBONATE 26.4 mmol/L (18.0-23.0); PCO2 38 mmHg (35-45); PO2 73 mmHg (80-90)
--- NOTE | 2016-11-25 04:38 | NUR ---
Significant Event: DROWSY OVERNIGHT. FOLLOWS SOME COMMANDS. NODS AT TIMES. HR DOWN TO 45. DR. MCGRAW AWARE, NO NEED TO CALL UNLESS <40 OR SYMPTOMATIC. LEVO DOWN TO 0.03MCG/KG/MIN. FIO2 INCREASED TO 80%. WHEEZES, COARSE IN UPPER LOBES, VERY DIMINISHED IN BILAT LOWER LOBES. BLOOD TINGED SPUTUM FROM ETT. NO OG. RARE BOWEL SOUNDS. NO BM. 5ML UOP. TEMP 96 MOST OF NIGHT. PATIENT STATED HE FELT HOT. REMOVED GOWN PER HIS REQUEST. COVERED WITH SHEET. RESTRAINTS PLACED TO BILAT WRISTS D/T PATIENT REPEATEDLY ATTEMPTING TO PULL OUT ETT. FENTANYL IVP GIVEN X2. UPDATED FAMILY ON CARES. Follow up: FAMILY STATES THEY WILL BE HERE THIS AM TO DISCUSS PLAN OF CARE.
[2016-11-25 04:43] LABS: ALBUMIN 3.1 gm/dL (3.5-5.0); ANION GAP 14.4 (10.0-19.0); CALCIUM 8.4 mg/dL (8.5-10.5); POTASSIUM 3.4 mMol/L (3.7-5.1)
[2016-11-25 04:48] LABS: BASOPHIL % 0.2 %; EOSINOPHIL # 0.3 K/uL (0.0-0.5); HEMATOCRIT 21.6 % (37.0-53.0); IMMATURE GRANULOCYTE # 0.1 K/uL (0.0-0.3); IMMATURE GRANULOCYTE % 0.8 %; LYMPHOCYTE # 0.6 K/uL (0.8-4.0); MONOCYTE # 0.6 K/uL (0.0-1.0); MONOCYTE % 6.6 %; NEUTROPHIL # (ANC) 7.1 K/uL (1.4-9.0); NEUTROPHIL % 82.4 %; NRBC % 0.5 /100WBC (0-0.00); RBC 2.77 M/uL (4.00-6.00); RDW-CV 23.4 % (11.9-14.6); WBC 8.6 K/uL (4.0-11.0)
[2016-11-25 04:56] LABS: HEMOGLOBIN 6.7 g/dL (12.0-17.0); MCH 24.2 pg (27.0-34.0); PLATELET COUNT 35 K/uL (150-450)
--- NOTE | 2016-11-25 05:11 | NUR ---
Patient's FIO2 has been increased from 60% up to 80% and back down to 70% throguh out the shift to maintain saturations greater than 87%. Suction cath changed this shift. Breath sounds coarse in the upper lobes, slightly coarse and diminished in the bases. After suctioning, patient has started to have an expiratory wheeze. Family will be in today to discuss plan of care. Will continue to monitor.
[2016-11-25 09:45] LABS: HEMATOCRIT 22.3 % (37.0-53.0); MCV 78.5 fl (83.0-98.0); RBC 2.84 M/uL (4.00-6.00); RDW-CV 23.6 % (11.9-14.6); WBC 9.1 K/uL (4.0-11.0)
[2016-11-25 09:47] LABS: HEMOGLOBIN 6.8 g/dL (12.0-17.0); MCH 23.9 pg (27.0-34.0); MCHC 30.5 gm/dL (32.0-36.5); PLATELET COUNT 37 K/uL (150-450)
--- NOTE | 2016-11-25 10:27 | NUR ---
PER ROUNDS FAMILY TO COME THIS AM AND WILL LIKELY W/DRAW CARE. THE POC CHANGES, PLEASE CONSULT FOR NUTRITION SUPPORT. WILL MOVE PT TO NO RISK.
--- NOTE | 2016-11-25 17:28 | NUR ---
I did speak with Goran [phone] daughter in law and did explain I spoke with tejas the DON up in [place] and update her the plan is to withdraw cares and they are worried about his belongings and she stated they will have them till as long that is needed. I did update family on this and gave them the nursing homes number. WIll assist as needed.
--- NOTE | 2016-11-25 17:38 | NUR ---
D: RESP FAILURE I: N/A R: TOOK PT OFF VENT @ 15:54 TO A 2 LPM NC PER COMFORT CARE ORDERS P: N/A
--- NOTE | 2016-11-25 19:07 | NUR ---
Significant Event: Patient went comfort cares at 1515. Gave 1mg of Ativan at 1515. Patient was extubated at 1554. 2L NC was applied per family request. Patient at 1610 Follow up:
== END 2016-11-25 16:10 | disposition expired | DRG 207 ==
LOC: GICU 15:28
PROVIDERS: Anesthesiology Critical Care Medicine; Family Medicine; Hospitalist; Internal Medicine; Internal Medicine Critical Care Medicine; Internal Medicine Nephrology; ADMIT Internal Medicine
PROC: 5A1955Z Respiratory Ventilation, Greater than 96 Consecutive Hours (ICD-10-PCS; principal; 2016-11-05)
PROC: 02HP32Z Insertion of Monitoring Device into Pulmonary Trunk, Percutaneous Approach (ICD-10-PCS; 2016-11-05)
PROC: 02HV33Z Insertion of Infusion Device into Superior Vena Cava, Percutaneous Approach (ICD-10-PCS; 2016-11-05)
PROC: 30233N1 Transfusion of Nonautologous Red Blood Cells into Peripheral Vein, Percutaneous Approach (ICD-10-PCS; 2016-11-05)
PROC: 0W3P8ZZ Control Bleeding in Gastrointestinal Tract, Via Natural or Artificial Opening Endoscopic (ICD-10-PCS; 2016-11-06)
PROC: 0DH67UZ Insertion of Feeding Device into Stomach, Via Natural or Artificial Opening (ICD-10-PCS; 2016-11-07)
PROC: 30233K1 Transfusion of Nonautologous Frozen Plasma into Peripheral Vein, Percutaneous Approach (ICD-10-PCS; 2016-11-16)
PROC: 0W9G3ZZ Drainage of Peritoneal Cavity, Percutaneous Approach (ICD-10-PCS; 2016-11-17)
PROC: 30233K1 Transfusion of Nonautologous Frozen Plasma into Peripheral Vein, Percutaneous Approach (ICD-10-PCS; 2016-11-17)
PROC: 02HV33Z Insertion of Infusion Device into Superior Vena Cava, Percutaneous Approach (ICD-10-PCS; 2016-11-18)
PROC: 5A1D60Z (ICD-10-PCS; 2016-11-21)
PROC: 02HV33Z Insertion of Infusion Device into Superior Vena Cava, Percutaneous Approach (ICD-10-PCS; 2016-11-21)
PROC: 0BH17EZ Insertion of Endotracheal Airway into Trachea, Via Natural or Artificial Opening (ICD-10-PCS; 2016-11-22)
PROC: 5A1945Z Respiratory Ventilation, 24-96 Consecutive Hours (ICD-10-PCS; 2016-11-22)
DX: J96.21 Acute and chronic respiratory failure with hypoxia (principal); R57.0 Cardiogenic shock; R65.11 Systemic inflammatory response syndrome (SIRS) of non-infectious origin with acute organ dysfunction; I85.11 Secondary esophageal varices with bleeding; G93.41 Metabolic encephalopathy; I50.33 Acute on chronic diastolic (congestive) heart failure; J18.9 Pneumonia, unspecified organism; K65.2 Spontaneous bacterial peritonitis; I95.9 Hypotension, unspecified; I13.0 Hypertensive heart and chronic kidney disease with heart failure and stage 1 through stage 4 chronic kidney disease, or unspecified chronic kidney disease; D62 Acute posthemorrhagic anemia; E87.2 Acidosis; I47.1 Supraventricular tachycardia; I48.92 Unspecified atrial flutter; N17.9 Acute kidney failure, unspecified; E87.3 Alkalosis; Z51.5 Encounter for palliative care; E87.0 Hyperosmolality and hypernatremia; E87.1 Hypo-osmolality and hyponatremia; D68.9 Coagulation defect, unspecified; N18.4 Chronic kidney disease, stage 4 (severe); K70.31 Alcoholic cirrhosis of liver with ascites; J96.02 Acute respiratory failure with hypercapnia; K31.89 Other diseases of stomach and duodenum; I27.2 Other secondary pulmonary hypertension; E11.22 Type 2 diabetes mellitus with diabetic chronic kidney disease; Y95 Nosocomial condition; Z99.81 Dependence on supplemental oxygen; I25.10 Atherosclerotic heart disease of native coronary artery without angina pectoris; J44.9 Chronic obstructive pulmonary disease, unspecified; D69.6 Thrombocytopenia, unspecified; F10.20 Alcohol dependence, uncomplicated; K70.40 Alcoholic hepatic failure without coma; Z87.891 Personal history of nicotine dependence; I87.2 Venous insufficiency (chronic) (peripheral); Z79.4 Long term (current) use of insulin; I25.2 Old myocardial infarction; E03.9 Hypothyroidism, unspecified; Z79.82 Long term (current) use of aspirin; E66.9 Obesity, unspecified; Z68.39 Body mass index [BMI] 39.0-39.9, adult; Z78.1 Physical restraint status; E87.6 Hypokalemia; I48.91 Unspecified atrial fibrillation; E83.39 Other disorders of phosphorus metabolism; E83.42 Hypomagnesemia; Z66 Do not resuscitate
CPT/HCPCS: C1751; C1769; C1887; C1894; C9113; G0237; J0171; J0610; J0696; J1160; J1170; J1250; J1644; J1956; J2020; J2060; J2185; J2250; J2260; J2270; J2354; J2370; J2765; J3010; J3475; J3480; J7030; J7040; J7050; J7060; P9016; P9017; P9047

== ENCOUNTER → 2016-11-05 | Outpatient (CLI) | payer MEDICAID ==
[~2016-11-05] MED LIST: ACIDOPHILUS LA1 EACH PO; ALBUTEROL1.25 MG/3 INH; ALDACTONE25 MG PO; ASPIRIN LO-DOSE81 MG PO; COLACE100 MG PO; DULCOLAX10 MG R; FENTANYL1 EAC1 TRANS; FLEET ENEMA133 ML R; GLUCOSE GEL38 GM PO; K-TAB ER20 MEQ PO; LASIX80 MG PO; LEVOTHROID (S150 MCG PO; LEXAPRO10 MG PO; MELATONIN3 MG PO; MILK OF MA400 MG/5 M PO; MYLANTA (MAG-AL30 ML PO; OCEAN NASAL) (A44 ML NOSE; PREPARATION H O57 GM R; REFRESH TEARS15 ML OPHTH; ROBITUSSIN DM120 ML PO; SPIRIVA HANDIHA1 KIT INH; SYMBICORT 16010.2 GM INH; THERAGRAN-M1 TAB PO; TYLENOL325 MG PO; XANAX0.5 MG PO; ZAROXOLYN2.5 MG PO
== END | disposition disaster alternative care site (69) ==
LOC: GAIR 14:52 → GAMB 14:52
DX: R06.02 Shortness of breath (principal); J44.9 Chronic obstructive pulmonary disease, unspecified; I50.9 Heart failure, unspecified; J45.909 Unspecified asthma, uncomplicated; I10 Essential (primary) hypertension; Z79.2 Long term (current) use of antibiotics; Z79.899 Other long term (current) drug therapy
CPT/HCPCS: A0422; A0431; A0436; J2250